=== PATIENT | male | born 1960 | race Caucasian/White ===

== ENCOUNTER 2018-07-19 10:46 | Emergency (ER) | payer BC ==
[2018-07-19] MEDS ORDERED: HYDROmorphone 2 MG/ML SDV IM ONE (11:28)
--- NOTE | 2018-07-19 11:29 | EDM.PDOC ---
ED HPI GENERAL MEDICAL PROBLEM - General Chief Complaint: General Stated Complaint: ABD PAIN, Time Seen by Provider: 07/19/18 10:46 Source of Information: Reports: Patient, Family History Limitations: Reports: No Limitations - History of Present Illness INITIAL COMMENTS - FREE TEXT/NARRATIVE: 58 y.o.w.m came to the ED with his family due to RUQ abd. pain. Pt was seen in the UC and was diagnosed with a liver and spinal lesion, suggestive of MM. Pt was given oxycodone for pain. Pt has an appointment with GI on 07/25/2018 for Bx and endoscopies. No trauma, No N/V/D or any other acute med issues. BP 125/99 RR 16 Pulse ox 96% on RA Temp 36.4 Pulse 104 Onset Date: 07/14/18 Onset Time: 08:00 Duration: Day(s):, Intermittent Location: Reports: Abdomen, Back Quality: Reports: Ache, Burning, Dull, Pressure Severity: Moderate Improves with: Reports: Rest Worsens with: Reports: Movement Context: Reports: Other Treatments [employer] SALES REPRESENTATIVE: Reports: Other (see below) (oxycodone with thylenol 8 hours [employer] REPRESENTATIVE) Right upper quadrant Pain Score (Numeric/FACES): 10 - Related Data Allergies Allergy/AdvReac Type Severity Reaction Status Date / Time No Known Allergies Allergy Verified 07/16/18 12:49 Home Meds: Home Meds Amitriptyline [Elavil] 25 mg PO DAILY 07/19/18 [History] Citalopram [Citalopram HBr] 40 mg PO DAILY 07/19/18 [History] Lisinopril 40 mg PO DAILY 07/19/18 [History] Simvastatin 10 mg PO DAILY 07/19/18 [History] oxyCODONE 5 mg PO Q6HR PRN #16 tab 07/19/18 [Rx] Past Medical History HEENT History: Reports: Impaired Vision Cardiovascular History: Reports: High Cholesterol, Hypertension Musculoskeletal History: Reports: Arthritis Psychiatric History: Reports: Depression Endocrine/Metabolic History: Reports: Obesity/BMI 30+ - Past Surgical History HEENT Surgical History: Reports: Other (See Below) Other HEENT Surgeries/Procedures: Septum surgery GI Surgical History: Reports: Colonoscopy, Other (See Below) Other GI Surgeries/Procedures: Liver lesion Musculoskeletal Surgical History: Reports: Hip Replacement Social & Family History - Tobacco Use Smoking Status *Q: Never Smoker Second Hand Smoke Exposure: No - Caffeine Use Caffeine Use: Reports: Soda - Recreational Drug Use Recreational Drug Use: No ED ROS GENERAL - Review of Systems Review Of Systems: See Below Constitutional: Reports: No Symptoms HEENT: Reports: No Symptoms Respiratory: Reports: No Symptoms Cardiovascular: Reports: No Symptoms Endocrine: Reports: No Symptoms GI/Abdominal: Reports: Abdominal Pain : Reports: No Symptoms Musculoskeletal: Reports: No Symptoms Skin: Reports: No Symptoms Neurological: Reports: No Symptoms Psychiatric: Reports: No Symptoms Hematologic/Lymphatic: Reports: No Symptoms Immunologic: Reports: No Symptoms ED EXAM, GENERAL - Physical Exam Exam: See Below Exam Limited By: No Limitations General Appearance: Alert, WD/WN, Mild Distress Eye Exam: Bilateral Eye: Normal Inspection Ears: Normal External Exam Ear Exam: Bilateral Ear: Auricle Normal Nose: Normal Inspection Throat/Mouth: Normal Lips, Normal Voice, No Airway Compromise Head: Atraumatic, Normocephalic Neck: Normal Inspection, Supple, Non-Tender, Full Range of Motion Respiratory/Chest: No Respiratory Distress, Lungs Clear, Normal Breath Sounds Cardiovascular: Normal Peripheral Pulses, Regular Rate, Rhythm, No Edema, No Gallop Peripheral Pulses: 2+: Brachial (R) GI/Abdominal: Tender (RUQ ), Hepatomegaly (Male) Exam: No Hernia Rectal (Males) Exam: Deferred Back Exam: Normal Inspection, Full Range of Motion Extremities: Normal Inspection, Normal Range of Motion, Non-Tender, Normal Capillary Refill Neurological: Alert, Oriented, CN II-XII Intact, Normal Cognition, Normal Gait Psychiatric: Normal Affect, Normal Mood Skin Exam: Warm, Dry, Intact, Normal Color, No Rash Lymphatic: No Adenopathy Course - Vital Signs Text/Narrative:: 58 y.o.w.m came to the ED with his family due to RUQ abd. pain. Pt was seen in the UC and was diagnosed with a liver and spinal lesion, suggestive of MM. Pt was given oxycodone for pain. Pt has an appointment with GI on 07/25/2018 for Bx and endoscopies. No trauma, No N/V/D or any other acute med issues. BP 125/99 RR 16 Pulse ox 96% on RA Temp 36.4 Pulse 104 PE: WNWD w m with hepatomegaly Labs: and imaging taken 07/15/2018 Impression: Hepatomegaly with RUQ abd. pain; liver and bone lesions as per CT abd/pelvis taken 07/15/2018 Tx: Dilaudid, Pt refused US of abd. limited Reexam: Improved Plan: D/C with instructions 11.31 consultation Gretchen Moise: 07/25/2018 GI for endoscopy. Last Recorded V/S: Last Vital Signs Temp 36.8 C 07/19/18 11:55 Pulse 88 07/19/18 11:55 Resp 16 07/19/18 11:55 BP 141/91 H 07/19/18 11:55 Pulse Ox 97 07/19/18 11:55 - Orders/Labs/Meds Meds: Medications Discontinued Medications Generic Name Dose Route Start Last Admin Trade Name Freq PRN Reason Stop Dose Admin Hydromorphone HCl 1 mg 07/19/18 11:28 07/19/18 11:36 Dilaudid IM 07/19/18 11:29 1 mg ONETIME ONE Administration Departure - Departure Time of Disposition: 12:00 Disposition: Home, Self-Care 01 Condition: Good Clinical Impression: Abdominal pain - Discharge Information Prescriptions: oxyCODONE 5 mg PO Q6HR PRN #16 tab PRN Reason: for severe pain Instructions: Hepatomegaly, [id number] Referrals: Stalin Mondragon MD [Primary Care Provider] - Forms: ED Department Discharge Additional Instructions: Please take Oxycodone for severe pain please f/u with GI as scheduled on 2018, Please come back if your symptoms get worse acutely
== END 2018-07-19 11:58 | disposition home or self-care (01) ==
LOC: FB.ED 10:46
DX: R16.0 Hepatomegaly, not elsewhere classified (principal); R94.8 Abnormal results of function studies of other organs and systems; E78.00 Pure hypercholesterolemia, unspecified; I10 Essential (primary) hypertension; E66.9 Obesity, unspecified; Z79.899 Other long term (current) drug therapy; Z68.31 Body mass index [BMI] 31.0-31.9, adult
CPT/HCPCS: 96372; 99283; J1170

== ENCOUNTER 2020-08-24 10:03 | Inpatient (IN) | payer BC ==
--- NOTE | 2020-08-24 10:37 | EDM.PDOC ---
ED HPI GENERAL MEDICAL PROBLEM - General Chief Complaint: General Stated Complaint: FALL Time Seen by Provider: 08/24/20 10:03 - History of Present Illness INITIAL COMMENTS - FREE TEXT/NARRATIVE: 60-year-old gentleman with a past medical history significant for bile duct cancer was brought to the emergency department from his home by EMS after suffering a fall in the bathroom. Patient states that he was simply weak and his leg gave out and he fell. He did not hit his head or suffer any other injuries. He has no pain or complaints. However, he has had several falls recently. This is about his fifth fall in 1 week. Review of past medical records shows that he has been to his primary care physician twice this past week and received IV fluids. His last cancer treatment was in May or June of this year and he is trying to regain some strength prior to his next cancer treatment. 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 He also has a history of left lower extremity DVT currently treated with Eliquis 5 mg daily. He did not take Eliquis this morning and is not sure if he has been taking his Eliquis daily as prescribed but thinks that he has. He does not have shortness of breath or chest pain at this time. - Related Data Allergies Allergy/AdvReac Type Severity Reaction Status Date / Time No Known Allergies Allergy Verified 07/16/18 12:49 Home Meds: Home Meds Amitriptyline [Elavil] 25 mg PO DAILY 07/19/18 [History] Citalopram [Citalopram HBr] 40 mg PO DAILY 07/19/18 [History] Lisinopril 40 mg PO DAILY 07/19/18 [History] Simvastatin 10 mg PO DAILY 07/19/18 [History] oxyCODONE 5 mg PO Q6HR PRN #16 tab 07/19/18 [Rx] Past Medical History HEENT History: Reports: Impaired Vision Cardiovascular History: Reports: High Cholesterol, Hypertension Musculoskeletal History: Reports: Arthritis Psychiatric History: Reports: Depression Endocrine/Metabolic History: Reports: Obesity/BMI 30+ - Past Surgical History HEENT Surgical History: Reports: Other (See Below) Other HEENT Surgeries/Procedures: Septum surgery GI Surgical History: Reports: Colonoscopy, Other (See Below) Other GI Surgeries/Procedures: Liver lesion Musculoskeletal Surgical History: Reports: Hip Replacement Social & Family History - Caffeine Use Caffeine Use: Reports: Soda ED ROS GENERAL - Review of Systems Review Of Systems: See Below Constitutional: Reports: Weakness HEENT: Reports: No Symptoms Respiratory: Reports: No Symptoms Cardiovascular: Reports: No Symptoms Endocrine: Reports: No Symptoms GI/Abdominal: Reports: No Symptoms : Reports: No Symptoms Musculoskeletal: Reports: No Symptoms Skin: Reports: No Symptoms Neurological: Reports: Difficulty Walking, Weakness, Gait Disturbance Psychiatric: Reports: No Symptoms Hematologic/Lymphatic: Reports: No Symptoms Immunologic: Reports: No Symptoms ED EXAM, NEURO - Physical Exam Exam: See Below Exam Limited By: No Limitations General Appearance: Alert, WD/WN, No Apparent Distress, Anxious Eye Exam: Bilateral Eye: EOMI Throat/Mouth: Normal Inspection Head Exam: Other (Patient has ecchymosis with swelling on the superior aspect of the right parietal area (this is an injury from a previous fall last week and is known)) Neck: Normal Inspection Respiratory/Chest: No Respiratory Distress, Lungs Clear Cardiovascular: Normal Peripheral Pulses, Regular Rate, Rhythm GI/Abdominal: Normal Bowel Sounds, Non-Tender Neurological: Alert, Normal Mood/Affect, CN II-XII Intact, Ataxia Back Exam: Other (Large bruise in approximately the T12-L1 area (this is also from a previous fall and is known with no current symptoms)). No: CVA Tenderness (L), Decreased Range of Motion Extremities: Pedal Edema, Other (Multiple bruises from previous falls). No: Arm Pain, James's Sign, Leg Pain Psychiatric: Normal Affect, Normal Mood, Anxious Skin Exam: Warm, Dry, Intact Course - Orders/Labs/Meds Orders: Active Orders 24 hr Category Date Time Status Patient Status Manage Transfer [TRANSFER] Routine ADT 08/24/20 11:29 Active Magnesium Sulfate/Water [Magnesium Sulfate in Water 4 Med 08/24/20 11:10 Active GM/50 ML] 4 gm Premix Bag 1 bag IV ONETIME Medication Orders Magnesium Sulfate 4 gm/ Premix 50 mls @ 12.5 mls/hr IV ONETIME ONE Stop: 08/24/20 15:09 Last Admin: 08/24/20 11:29 Dose: 12.5 mls/hr Documented by: EDUARD Labs: Laboratory Tests 08/24/20 08/24/2008/24/21 Range/Units 10:35 10:35 10:35 WBC 4.2 (3.2-10.1) x10-3/uL RBC 2.32 L (3.90-5.90) x10(6)uL Hgb 8.6 L (12.9-17.7) g/dL Hct 26.1 L (38.3-50.1) % MCV 112.6 H (80.8-98.7) fL MCH 37.0 H (27.0-33.3) pg MCHC 32.9 (28.7-35.3) g/dL RDW 18.2 H (12.4-15.0) % Plt Count 89 L (117-477) x10(3)uL MPV 7.1 (6.7-11.0) fL Neut % (Auto) 73.6 H (40.3-71.8) % Lymph % (Auto) 15.2 L (15.8-45.3) % [place] % (Auto) 9.7 (5.5-15.2) % Eos % (Auto) 1.1 (0.1-6.8) % Baso % (Auto) 0.4 (0.3-3.8) % Neut # (Auto) 3.1 (1.7-6.9) x10-3/uL Lymph # (Auto) 0.6 (0.5-4.5) x10-3/uL [place] # (Auto) 0.4 (0.0-1.2) x10-3/uL Eos # (Auto) 0.0 (0.0-0.6) x10-3/uL Baso # (Auto) 0.0 (0.0-0.3) x10-3/uL Sodium 140 (135-145) mmol/L Potassium 3.4 L (3.5-5.3) mmol/L Chloride 101 (100-110) mmol/L Carbon Dioxide 28 (21-32) mmol/L BUN 9 (7-18) mg/dL Creatinine 0.7 (0.70-1.30) mg/dL Est Cr Clr Drug Dosing TNP Estimated GFR (MDRD) > 60 (>60) BUN/Creatinine Ratio 12.9 (9-20) Glucose 93 (80-116) mg/dL Calcium 8.8 (8.6-10.2) mg/dL Magnesium 0.8 L* (1.8-2.5) mg/dL Total Bilirubin 1.0 (0.1-1.3) mg/dL AST 65 H D (5-25) IU/L ALT 36 D (12-36) U/L Alkaline Phosphatase 125 H (56-112) IU/L Total Protein 5.1 L (6.0-8.0) g/dL Albumin 2.3 L (3.2-4.6) g/dL Globulin 2.8 g/dL Albumin/Globulin Ratio 0.8 Meds: Medications Generic Name Dose Route Start Last Admin Trade Name Freq PRN Reason Stop Dose Admin Magnesium Sulfate 4 gm/ Premix 50 mls @ 12.5 mls/hr 08/24/20 11:10 08/24/20 11:29 IV 08/24/20 15:09 12.5 mls/hr ONETIME ONE Administration Discontinued Medications Generic Name Dose Route Start Last Admin Trade Name Freq PRN Reason Stop Dose Admin Potassium Chloride 40 meq 08/24/20 11:11 08/24/20 11:29 Potassium Chloride 20 Meq Tab.Er PO 08/24/20 11:12 40 meq ONETIME ONE Administration Departure - Departure Time of Disposition: 11:30 Disposition: Admitted As Inpatient 65 Condition: Fair Clinical Impression: Weakness - Discharge Information *PRESCRIPTION DRUG MONITORING PROGRAM REVIEWED*: Not Applicable *COPY OF PRESCRIPTION DRUG MONITORING REPORT IN PATIENT ANU: Not Applicable Forms: ED Department Discharge - My Orders Last 24 Hours: My Active Orders 08/24/20 11:10 Magnesium Sulfate/Water [Magnesium Sulfate in Water 4 GM/50 ML] 4 gm Premix Bag 1 bag IV ONETIME 08/24/20 11:29 Patient Status Manage Transfer [TRANSFER] Routine - Assessment/Plan Last 24 Hours: My Active Orders 08/24/20 11:10 Magnesium Sulfate/Water [Magnesium Sulfate in Water 4 GM/50 ML] 4 gm Premix Bag 1 bag IV ONETIME 08/24/20 11:29 Patient Status Manage Transfer [TRANSFER] Routine
[2020-08-24] MEDS ORDERED: Magnesium Sulfate/Water 4 GM in Premix Bag 1 BAG IV ONE (11:10)
[2020-08-24] MEDS ORDERED: Potassium Chloride 20 MEQ Tab.ER PO ONE (11:11)
--- NOTE | 2020-08-24 12:46 | PCM.HP.2 ---
H&P History of Present Illness - General Date of Service: 08/24/20 Admit Problem/Dx: Admission Diagnosis/Problem Admission Diagnosis/Problem Weakness Source of Information: Patient, EMS Notes Reviewed, Family - History of Present Illness Initial Comments - Free Text/Narative: Ari presents to [facility] today for fall at home, he has had more generalized weakness over the past few weeks. He was seen in clinic twice this week also for falls, bruising on his back, arms are from previous falls. No fractures or loss of consciousness with falls. No pain. He denies any diarrhea, black or bloody stools, dark red urine but family stated urine this week at clinic was negative for blood. He has poor appetite, family also confirms. She noted that he has been more confused lately and she noticed in the past few weeks that his right pupil looks funny, doesn't seem to react like the other one, just staring off. He denies any change of his vision. 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 Family states he has never had imaging done of his head in regards to cancer or since he has been falling. 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 He was last hospitalized in [place] with cellulitis beginning of July 2020, his Hgb was 11 at that time, platelets were 229. In clinic his potassium was low this week, no record of magnesium level per his [facility] chart, has been on potassium replacement for this. He got 3 bags of IV fluids total between the two clinic visits this week. Denies any slurred speech or limb weakness. No history of stroke. - Related Data Allergies/Adverse Reactions: Allergies Allergy/AdvReac Type Severity Reaction Status Date / Time No Known Allergies Allergy Verified 07/16/18 12:49 Home Medications: Home Meds Amitriptyline [Elavil] 25 mg PO DAILY 07/19/18 [History] Citalopram [Citalopram HBr] 40 mg PO DAILY 07/19/18 [History] Lisinopril 40 mg PO DAILY 07/19/18 [History] Simvastatin 10 mg PO DAILY 07/19/18 [History] oxyCODONE 5 mg PO Q6HR PRN #16 tab 07/19/18 [Rx] Past Medical History HEENT History: Reports: Impaired Vision Cardiovascular History: Reports: High Cholesterol, Hypertension Musculoskeletal History: Reports: Arthritis Psychiatric History: Reports: Depression Endocrine/Metabolic History: Reports: Obesity/BMI 30+ - Past Surgical History HEENT Surgical History: Reports: Other (See Below) Other HEENT Surgeries/Procedures: Septum surgery GI Surgical History: Reports: Colonoscopy, Other (See Below) Other GI Surgeries/Procedures: Liver lesion Musculoskeletal Surgical History: Reports: Hip Replacement Social & Family History - Caffeine Use Caffeine Use: Reports: Soda H&P Review of Systems - Review of Systems: Review Of Systems: Comprehensive ROS is negative, except as noted in HPI. Exam - Exam Exam: See Below - Exam General: Alert, Oriented, Cooperative HEENT: Conjunctiva Clear, EOMI, Hearing Intact, Mucosa Moist & [place], Posterior Pharynx Clear. No: Pupils Equal (Right: 2-3 mm, non-reactive to sluggish; Left 4 mm, reactive), Pupils Reactive Neck: Trachea Midline. No: Lymphadenopathy Lungs: Clear to Auscultation, Normal Respiratory Effort Cardiovascular: Tachycardia. No: Systolic Murmur GI/Abdominal Exam: Normal Bowel Sounds, Soft, Non-Tender, No Distention (Male) Exam: Deferred Rectal (Males) Exam: Deferred Back Exam: Other (scar across lower thoracic/upper lumbar back, ecchymosis on right lumbar paraspinal area). No: CVA Tenderness (R), CVA Tenderness (L), Paraspinal Tenderness Extremities: No Pedal Edema Peripheral Pulses: 2+: Radial (L), Radial (R) Skin: Ecchymosis Neurological: Normal Speech, Normal Tone, Sensation Intact, Babinski Absent, Reflexes Unequal. No: Cranial Nerves Intact (CN III on right: sluggish to non- reactive; reactive on left; CN II, IV-XII intact, bilateral), Strength Equal Bilateral (Strength 4+/5 BUE, 3+/5 BLE, dorsiflexion 5/5 bilateral, blue prints trimmer 4/5 bilateral) Neuro Extensive - Mental Status: Memory Loss-Recent Events (some history obtained from family as he did not remember), Nl Response to Commands Neuro Extensive - Motor, Sensory, Reflexes: No: Hemeplagia (R), Hemeplagia (L), Tremor DTR: 0: Patella (L), Patella (R), 1+: Achilles (L), Achilles (R), 2+: Bicep (L), Bicep (R), Tricep (L), Tricep (R) - Patient Data Lab Results Last 24 hrs: Laboratory Results - last 24 hr 08/24/20 08/24/20 08/24/20 Range/Units 10:35 10:35 10:35 WBC 4.2 (3.2-10.1) x10-3/uL RBC 2.32 L (3.90-5.90) x10(6)uL Hgb 8.6 L (12.9-17.7) g/dL Hct 26.1 L (38.3-50.1) % MCV 112.6 H (80.8-98.7) fL MCH 37.0 H (27.0-33.3) pg MCHC 32.9 (28.7-35.3) g/dL RDW 18.2 H (12.4-15.0) % Plt Count 89 L (117-477) x10(3)uL MPV 7.1 (6.7-11.0) fL Neut % (Auto) 73.6 H (40.3-71.8) % Lymph % (Auto) 15.2 L (15.8-45.3) % [place] % (Auto) 9.7 (5.5-15.2) % Eos % (Auto) 1.1 (0.1-6.8) % Baso % (Auto) 0.4 (0.3-3.8) % Neut # (Auto) 3.1 (1.7-6.9) x10-3/uL Lymph # (Auto) 0.6 (0.5-4.5) x10-3/uL [place] # (Auto) 0.4 (0.0-1.2) x10-3/uL Eos # (Auto) 0.0 (0.0-0.6) x10-3/uL Baso # (Auto) 0.0 (0.0-0.3) x10-3/uL Sodium 140 (135-145) mmol/L Potassium 3.4 L (3.5-5.3) mmol/L Chloride 101 (100-110) mmol/L Carbon Dioxide 28 (21-32) mmol/L BUN 9 (7-18) mg/dL Creatinine 0.7 (0.70-1.30) mg/dL Est Cr Clr Drug Dosing TNP Estimated GFR (MDRD) > 60 (>60) BUN/Creatinine Ratio 12.9 (9-20) Glucose 93 (80-116) mg/dL Calcium 8.8 (8.6-10.2) mg/dL Magnesium 0.8 L* (1.8-2.5) mg/dL Total Bilirubin 1.0 (0.1-1.3) mg/dL AST 65 H D (5-25) IU/L ALT 36 D (12-36) U/L Alkaline Phosphatase 125 H (56-112) IU/L Total Protein 5.1 L (6.0-8.0) g/dL Albumin 2.3 L (3.2-4.6) g/dL Globulin 2.8 g/dL Albumin/Globulin Ratio 0.8 Result Diagrams: 08/24/20 10:35 08/24/20 10:35 *Q Meaningful Use (ADM) - VTE *Q VTE Mechanical Contraindications *Q: At Risk for Falls VTE Pharmacological Contraindications *Q: Patient has Severe Anemia - VTE Risk Assess *Q Each Risk Factor Represents 1 Point: None Total Score 1 Point Risk Factors: 0 Each Risk Factor Represents 2 Points: Malignancy (present or previous) Total Score 2 Point Risk Factors: 2 Each Risk Factor Represents 3 Points: History of DVT/PE Total Score 3 Point Risk Factors: 3 Each Risk Factor Represents 5 Points: None Total Score 5 Point Risk Factors: 0 Venous Thromboembolism Risk Factor Score *Q: 5 - Problem List (1) Hypomagnesemia SNOMED Code(s): 806429508 ICD Code: E83.42 - HYPOMAGNESEMIA Status: Acute Current Visit: Yes (2) Hypokalemia SNOMED Code(s): 71220537 ICD Code: E87.6 - HYPOKALEMIA Status: Acute Current Visit: Yes (3) Weakness SNOMED Code(s): 19028356 ICD Code: R53.1 - WEAKNESS Status: Acute Current Visit: Yes (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(s): 293493231 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 Status: Acute Current Visit: Yes (5) Hyporeflexia SNOMED Code(s): 28686698 ICD Code: R29.2 - ABNORMAL REFLEX Status: Acute Current Visit: Yes (6) Recurrent falls SNOMED Code(s): 194381405 ICD Code: R29.6 - REPEATED FALLS Status: Acute Current Visit: Yes (7) Thrombocytopenia SNOMED Code(s): 416145444 ICD Code: D69.6 - THROMBOCYTOPENIA, UNSPECIFIED Status: Acute Current Visit: Yes (8) Anemia SNOMED Code(s): 085455750 ICD Code: D64.9 - ANEMIA, UNSPECIFIED Status: Acute Current Visit: Yes (9) Bile duct cancer SNOMED Code(s): 427633367 ICD Code: C24.0 - MALIGNANT NEOPLASM OF EXTRAHEPATIC BILE DUCT Status: Chronic Current Visit: Yes (10) Metastasis SNOMED Code(s): 558672191 ICD Code: C79.9 - SECONDARY MALIGNANT NEOPLASM OF UNSPECIFIED SITE Status: Chronic Current Visit: Yes Problem Details: ribs/back, liver Qualifiers: Area of secondary neoplastic involvement: bone Qualified Code(s): C79.51 - Secondary malignant neoplasm of bone Problem List Initiated/Reviewed/Updated: Yes Orders Last 24hrs: Active Orders 24 hr Category Date Time Status Patient Status [ADT] Routine ADT 08/24/20 11:38 Active Oxygen Therapy [RC] PRN Care 08/24/20 11:38 Active Up With Assistance [RC] ASDIRECTED Care 08/24/20 11:38 Active Up to Chair [RC] ASDIRECTED Care 08/24/20 11:38 Active VTE/DVT Education [RC] Per Unit Routine Care 08/24/20 11:38 Active Vital Signs [RC] Q4H Care 08/24/20 11:38 Active OT Evaluation and Treatment [CONS] Routine Cons 08/24/20 11:38 Active PT Evaluation and Treatment [CONS] Routine Cons 08/24/20 11:38 Active Regular Diet [DIET] Diet 08/24/20 Lunch Active Head wo Cont [CT] Stat Exams 08/24/20 12:06 Ordered BASIC METABOLIC PANEL,BMP [CHEM] Routine Lab 08/25/20 06:00 Ordered CBC WITH AUTO DIFF [HEME] Routine Lab 08/25/20 06:00 Ordered MAGNESIUM [CHEM] Routine Lab 08/25/20 06:00 Ordered Magnesium Sulfate/Water [Magnesium Sulfate in Water 4 Med 08/24/20 11:10 Active GM/50 ML] 4 gm Premix Bag 1 bag IV ONETIME Sodium Chloride 0.9% [Saline Flush] Med 08/24/20 11:38 Active 10 ml FLUSH ASDIRECTED PRN Antiembolic Hose [OM.PC] Per Unit Routine Ot 08/24/20 11:40 Ordered Saline Lock Insert [OM.PC] Routine Ot 08/24/20 11:38 Ordered VTE Mechanical Contraindications [AST] Per Unit Routine Ot 08/24/20 11:38 Ordered VTE Pharmacological Contraindications [AST] Per Unit Ot 08/24/20 11:38 Ordered Routine Resuscitation Status Routine Resus Stat 08/24/20 11:38 Ordered Medication Orders Magnesium Sulfate 4 gm/ Premix 50 mls @ 12.5 mls/hr IV ONETIME ONE Stop: 08/24/20 15:09 Last Admin: 08/24/20 11:29 Dose: 12.5 mls/hr Documented by: EDUARD Sodium Chloride (Sodium Chloride 0.9% 10 Ml Syringe) 10 ml FLUSH ASDIRECTED PRN PRN Reason: Keep Vein Open Assessment/Plan Comment:: 1. Admit for hypomagnesemia, hypokalemia, generalized weakness, recurrent falls, hyporeflexia/abnormal right pupil, history of bile duct cancer. 2. recurrent falls/hyporeflexia/abnormal pupil: will get CT head without contrast to rule out stroke vs hemorrhage, on Eliquis and thrombocytopenic worse since last admission at 229. No obvious source of blood loss. No history of blood transfusions. Not taking iron. 3. Falls/generalized weakness: PT/OT evaluate & treat on Tuesday. 4. Hypomagnesemia/hypokalemia: Magnesium 4 gram IV given in ER, and KCL 40 mEQ in ER; repeat BMP & magnesium in AM. 5. Anemia/thrombocytopenia: repeat CBC tomorrow. FOB & UA ordered. 6. Bile duct cancer: last chemo was June 2020, due to see oncology on Tuesday with CT chest/abdomen/pelvis. Has been off chemo due to weakness. 7. DIET: Regular. 8. Activity: up to chair and with assistance. 9. DVT prophylaxis: CT head to rule out hemorrhage, if negative will resume home Eliquis 5 mg bid. TEDs BLE. 10. CODE STATUS: DNR/DNI. 11. Discharge: anticipate discharge 48-96 hr depending on response to PT/OT and electrolyte replacement. - Mortality Measure Prognosis:: Poor
[2020-08-24] MEDS ORDERED: Acetaminophen 650 MG Tab.ER PO PRN (15:27)
[2020-08-24] MEDS: Sodium Chloride 0.9% 1,000 ML IV SCH (15:28)
[2020-08-24] MEDS: Acetaminophen/Diphenhydramine 500-25 MG Tab PO SCH (20:06)
[2020-08-24] MEDS ORDERED: Loperamide 2 MG Cap PO ONE (20:27)
[2020-08-25] MEDS: Sodium Chloride 0.9% 1,000 ML IV SCH (01:11)
[2020-08-25] MEDS: Pantoprazole 40 MG Tab.CR PO SCH (06:48)
[2020-08-25] MEDS: Citalopram 20 MG Tab PO SCH (09:02)
[2020-08-25] MEDS: Potassium Chloride 20 MEQ Tab.ER PO SCH (09:02)
[2020-08-25] MEDS ORDERED: Melatonin 3 MG Tab PO PRN (09:13)
--- NOTE | 2020-08-25 10:29 | PCM.PN ---
- General Info Date of Service: 08/25/20 Subjective Update: He slept a little bit better yesterday, not been sleeping much lately. He had bad nightmares on Ambien so no longer taking that at home. No nausea/vomiting, diarrhea. His appetite is still poor, states he drinks a lot of protein shakes at home. He feels he has maybe a couple months left to live, he has not really rallied since going off chemo in June, lost another 14 lbs since 07/30, had lost 14 lbs from May to that July appt with oncology, so 28 lbs total since . He seems more alert today but still confused as he told me he thought he could take care of himself at home then said exact opposite to spiritual services. Family has noted more confusion over the past few months. - Patient Data Vitals - Most Recent: Last Vital Signs Temp 98.1 F 08/25/20 04:00 Pulse 109 H 08/25/20 04:00 Resp 20 08/25/20 04:00 BP 115/83 08/25/20 04:00 Pulse Ox 96 08/25/20 04:00 Weight - Most Recent: 189 lb 8 oz I&O - Last 24 Hours: Intake & Output 08/24/20 08/25/20 08/25/20 22:59 06:59 14:59 Intake Total 410 1080 Balance 410 1080 Lab Results Last 24 Hours: Laboratory Results - last 24 hr 08/24/20 08/24/20 08/24/20 Range/Units 10:35 10:35 10:35 WBC 4.2 (3.2-10.1) x10-3/uL RBC 2.32 L (3.90-5.90) x10(6)uL Hgb 8.6 L (12.9-17.7) g/dL Hct 26.1 L (38.3-50.1) % MCV 112.6 H (80.8-98.7) fL MCH 37.0 H (27.0-33.3) pg MCHC 32.9 (28.7-35.3) g/dL RDW 18.2 H (12.4-15.0) % Plt Count 89 L (117-477) x10(3)uL MPV 7.1 (6.7-11.0) fL Neut % (Auto) 73.6 H (40.3-71.8) % Lymph % (Auto) 15.2 L (15.8-45.3) % [place] % (Auto) 9.7 (5.5-15.2) % Eos % (Auto) 1.1 (0.1-6.8) % Baso % (Auto) 0.4 (0.3-3.8) % Neut # (Auto) 3.1 (1.7-6.9) x10-3/uL Lymph # (Auto) 0.6 (0.5-4.5) x10-3/uL [place] # (Auto) 0.4 (0.0-1.2) x10-3/uL Eos # (Auto) 0.0 (0.0-0.6) x10-3/uL Baso # (Auto) 0.0 (0.0-0.3) x10-3/uL Sodium 140 (135-145) mmol/L Potassium 3.4 L (3.5-5.3) mmol/L Chloride 101 (100-110) mmol/L Carbon Dioxide 28 (21-32) mmol/L BUN 9 (7-18) mg/dL Creatinine 0.7 (0.70-1.30) mg/dL Est Cr Clr Drug Dosing TNP Estimated GFR (MDRD) > 60 (>60) BUN/Creatinine Ratio 12.9 (9-20) Glucose 93 (80-116) mg/dL Calcium 8.8 (8.6-10.2) mg/dL Magnesium 0.8 L* (1.8-2.5) mg/dL Total Bilirubin 1.0 (0.1-1.3) mg/dL AST 65 H D (5-25) IU/L ALT 36 D (12-36) U/L Alkaline Phosphatase 125 H (56-112) IU/L Total Protein 5.1 L (6.0-8.0) g/dL Albumin 2.3 L (3.2-4.6) g/dL Globulin 2.8 g/dL Albumin/Globulin Ratio 0.8 Urine Color (YELLOW) Urine Appearance (CLEAR) Urine pH (5.0-6.5) Ur Specific [place] (1.010-1.025) Urine Protein (NEGATIVE) mg/dL Urine Glucose (UA) (NORMAL) mg/dL Urine Ketones (NEGATIVE) mg/dL Urine Occult Blood (NEGATIVE) Urine Nitrite (NEGATIVE) Urine Bilirubin (NEGATIVE) Urine Urobilinogen (NEGATIVE) mg/dL Ur Leukocyte Esterase (NEGATIVE) Urine RBC (0-5) Urine WBC (0-5) Ur Squamous Epith Cells (NS,R,O) Urine Bacteria (NS) Urine Mucus (NS) 08/24/20 08/25/20 08/25/20 Range/Units 13:59 06:35 06:35 WBC 4.7 (3.2-10.1) x10-3/uL RBC 2.22 L (3.90-5.90) x10(6)uL Hgb 8.3 L (12.9-17.7) g/dL Hct 25.2 L (38.3-50.1) % MCV 113.9 H (80.8-98.7) fL MCH 37.4 H (27.0-33.3) pg MCHC 32.9 (28.7-35.3) g/dL RDW 17.9 H (12.4-15.0) % Plt Count 89 L (117-477) x10(3)uL MPV 7.3 (6.7-11.0) fL Neut % (Auto) 74.6 H (40.3-71.8) % Lymph % (Auto) 14.7 L (15.8-45.3) % [place] % (Auto) 8.8 (5.5-15.2) % Eos % (Auto) 1.7 (0.1-6.8) % Baso % (Auto) 0.2 L (0.3-3.8) % Neut # (Auto) 3.5 (1.7-6.9) x10-3/uL Lymph # (Auto) 0.7 (0.5-4.5) x10-3/uL [place] # (Auto) 0.4 (0.0-1.2) x10-3/uL Eos # (Auto) 0.1 (0.0-0.6) x10-3/uL Baso # (Auto) 0.0 (0.0-0.3) x10-3/uL Sodium 141 (135-145) mmol/L Potassium 3.6 (3.5-5.3) mmol/L Chloride 105 (100-110) mmol/L Carbon Dioxide 27 (21-32) mmol/L BUN 8 (7-18) mg/dL Creatinine 0.7 (0.70-1.30) mg/dL Est Cr Clr Drug Dosing 121.63 Estimated GFR (MDRD) > 60 (>60) BUN/Creatinine Ratio 11.4 (9-20) Glucose 82 (80-116) mg/dL Calcium 7.5 L (8.6-10.2) mg/dL Magnesium 1.5 L (1.8-2.5) mg/dL Total Bilirubin (0.1-1.3) mg/dL AST (5-25) IU/L ALT (12-36) U/L Alkaline Phosphatase (56-112) IU/L Total Protein (6.0-8.0) g/dL Albumin (3.2-4.6) g/dL Globulin g/dL Albumin/Globulin Ratio Urine Color Yellow (YELLOW) Urine Appearance Clear (CLEAR) Urine pH 7.0 H (5.0-6.5) Ur Specific [place] 1.005 L (1.010-1.025) Urine Protein Negative (NEGATIVE) mg/dL Urine Glucose (UA) Normal (NORMAL) mg/dL Urine Ketones 15 H (NEGATIVE) mg/dL Urine Occult Blood Moderate H (NEGATIVE) Urine Nitrite Negative (NEGATIVE) Urine Bilirubin Negative (NEGATIVE) Urine Urobilinogen Normal (NEGATIVE) mg/dL Ur Leukocyte Esterase Negative (NEGATIVE) Urine RBC 5-10 H (0-5) Urine WBC 0-5 (0-5) Ur Squamous Epith Cells Few H (NS,R,O) Urine Bacteria Few H (NS) Urine Mucus Moderate H (NS) Med Orders - Current: Current Medications Acetaminophen (Acetaminophen 650 Mg Tab.Er) 650 mg PO Q8H PRN PRN Reason: Pain Acetaminophen/Diphenhydramine HCl (Acetaminophen/Diphenhydramine 500-25 Mg Tab) 1 tab PO BEDTIME DENEEN Last Admin: 08/24/20 20:06 Dose: 1 tab Documented by: Amitriptyline HCl (Amitriptyline 25 Mg Tab) 75 mg PO BEDTIME DENEEN Apixaban (Apixaban 5 Mg Tab) 5 mg PO BID [facility] Calcium Carbonate/Glycine (Calcium Carbonate 500 Mg Tablet) 1,500 mg PO BIDMEALS [facility] Citalopram Hydrobromide (Citalopram 20 Mg Tab) 40 mg PO DAILY [facility] Last Admin: 08/25/20 09:02 Dose: 40 mg Documented by: Sodium Chloride (Normal Saline) 1,000 mls @ 100 mls/hr IV ASDIRECTED [facility] Stop: 08/26/20 00:44 Last Admin: 08/25/20 01:11 Dose: 100 mls/hr Documented by: Loperamide HCl (Loperamide 2 Mg Cap) 2 mg PO ASDIRECTED PRN PRN Reason: Diarrhea Loperamide HCl (Loperamide 2 Mg Cap) 2 mg PO ASDIRECTED PRN PRN Reason: DIARRHEA Melatonin (Melatonin 3 Mg Tab) 6 mg PO BEDTIME PRN PRN Reason: Insomnia Morphine Sulfate (Morphine 15 Mg Tab) 15 mg PO Q4H PRN PRN Reason: severe Pain Pantoprazole Sodium (Pantoprazole 40 Mg Tab.Cr) 40 mg PO ACBREAKFAST [facility] Last Admin: 08/25/20 06:48 Dose: 40 mg Documented by: Potassium Chloride (Potassium Chloride 20 Meq Tab.Er) 20 meq PO DAILY [facility] Last Admin: 08/25/20 09:02 Dose: 20 meq Documented by: Simvastatin (Simvastatin 10 Mg Tab) 10 mg PO BEDTIME [facility] Sodium Chloride (Sodium Chloride 0.9% 10 Ml Syringe) 10 ml FLUSH ASDIRECTED PRN PRN Reason: Keep Vein Open Discontinued Medications Acetaminophen (Acetaminophen 650 Mg Tab.Er) 650 mg PO Q4H PRN PRN Reason: Pain Magnesium Sulfate 4 gm/ Premix 50 mls @ 12.5 mls/hr IV ONETIME ONE Stop: 08/24/20 15:09 Last Admin: 08/24/20 11:29 Dose: 12.5 mls/hr Documented by: Loperamide HCl (Loperamide 2 Mg Cap) 4 mg PO ONETIME ONE Stop: 08/24/20 20:28 Last Admin: 08/24/20 20:57 Dose: 4 mg Documented by: Potassium Chloride (Potassium Chloride 20 Meq Tab.Er) 40 meq PO ONETIME ONE Stop: 08/24/20 11:12 Last Admin: 08/24/20 11:29 Dose: 40 meq Documented by: - Exam Central Line Total Time: 0Days 13Hours General: Alert, Oriented (person, some confusion), Cooperative, No Acute Distress Lungs: Clear to Auscultation, Normal Respiratory Effort Cardiovascular: Regular Rate, Regular Rhythm GI/Abdominal Exam: Normal Bowel Sounds, Soft, Non-Tender, No Distention Extremities: No Pedal Edema Peripheral Pulses: 2+: Radial (L), Radial (R) - Patient Data Lab Results Last 24 hrs: Laboratory Results - last 24 hr 08/24/20 08/24/20 08/24/20 Range/Units 10:35 10:35 10:35 WBC 4.2 (3.2-10.1) x10-3/uL RBC 2.32 L (3.90-5.90) x10(6)uL Hgb 8.6 L (12.9-17.7) g/dL Hct 26.1 L (38.3-50.1) % MCV 112.6 H (80.8-98.7) fL MCH 37.0 H (27.0-33.3) pg MCHC 32.9 (28.7-35.3) g/dL RDW 18.2 H (12.4-15.0) % Plt Count 89 L (117-477) x10(3)uL MPV 7.1 (6.7-11.0) fL Neut % (Auto) 73.6 H (40.3-71.8) % Lymph % (Auto) 15.2 L (15.8-45.3) % [place] % (Auto) 9.7 (5.5-15.2) % Eos % (Auto) 1.1 (0.1-6.8) % Baso % (Auto) 0.4 (0.3-3.8) % Neut # (Auto) 3.1 (1.7-6.9) x10-3/uL Lymph # (Auto) 0.6 (0.5-4.5) x10-3/uL [place] # (Auto) 0.4 (0.0-1.2) x10-3/uL Eos # (Auto) 0.0 (0.0-0.6) x10-3/uL Baso # (Auto) 0.0 (0.0-0.3) x10-3/uL Sodium 140 (135-145) mmol/L Potassium 3.4 L (3.5-5.3) mmol/L Chloride 101 (100-110) mmol/L Carbon Dioxide 28 (21-32) mmol/L BUN 9 (7-18) mg/dL Creatinine 0.7 (0.70-1.30) mg/dL Est Cr Clr Drug Dosing TNP Estimated GFR (MDRD) > 60 (>60) BUN/Creatinine Ratio 12.9 (9-20) Glucose 93 (80-116) mg/dL Calcium 8.8 (8.6-10.2) mg/dL Magnesium 0.8 L* (1.8-2.5) mg/dL Total Bilirubin 1.0 (0.1-1.3) mg/dL AST 65 H D (5-25) IU/L ALT 36 D (12-36) U/L Alkaline Phosphatase 125 H (56-112) IU/L Total Protein 5.1 L (6.0-8.0) g/dL Albumin 2.3 L (3.2-4.6) g/dL Globulin 2.8 g/dL Albumin/Globulin Ratio 0.8 Urine Color (YELLOW) Urine Appearance (CLEAR) Urine pH (5.0-6.5) Ur Specific [place] (1.010-1.025) Urine Protein (NEGATIVE) mg/dL Urine Glucose (UA) (NORMAL) mg/dL Urine Ketones (NEGATIVE) mg/dL Urine Occult Blood (NEGATIVE) Urine Nitrite (NEGATIVE) Urine Bilirubin (NEGATIVE) Urine Urobilinogen (NEGATIVE) mg/dL Ur Leukocyte Esterase (NEGATIVE) Urine RBC (0-5) Urine WBC (0-5) Ur Squamous Epith Cells (NS,R,O) Urine Bacteria (NS) Urine Mucus (NS) 08/24/20 08/25/20 08/25/20 Range/Units 13:59 06:35 06:35 WBC 4.7 (3.2-10.1) x10-3/uL RBC 2.22 L (3.90-5.90) x10(6)uL Hgb 8.3 L (12.9-17.7) g/dL Hct 25.2 L (38.3-50.1) % MCV 113.9 H (80.8-98.7) fL MCH 37.4 H (27.0-33.3) pg MCHC 32.9 (28.7-35.3) g/dL RDW 17.9 H (12.4-15.0) % Plt Count 89 L (117-477) x10(3)uL MPV 7.3 (6.7-11.0) fL Neut % (Auto) 74.6 H (40.3-71.8) % Lymph % (Auto) 14.7 L (15.8-45.3) % [place] % (Auto) 8.8 (5.5-15.2) % Eos % (Auto) 1.7 (0.1-6.8) % Baso % (Auto) 0.2 L (0.3-3.8) % Neut # (Auto) 3.5 (1.7-6.9) x10-3/uL Lymph # (Auto) 0.7 (0.5-4.5) x10-3/uL [place] # (Auto) 0.4 (0.0-1.2) x10-3/uL Eos # (Auto) 0.1 (0.0-0.6) x10-3/uL Baso # (Auto) 0.0 (0.0-0.3) x10-3/uL Sodium 141 (135-145) mmol/L Potassium 3.6 (3.5-5.3) mmol/L Chloride 105 (100-110) mmol/L Carbon Dioxide 27 (21-32) mmol/L BUN 8 (7-18) mg/dL Creatinine 0.7 (0.70-1.30) mg/dL Est Cr Clr Drug Dosing 121.63 Estimated GFR (MDRD) > 60 (>60) BUN/Creatinine Ratio 11.4 (9-20) Glucose 82 (80-116) mg/dL Calcium 7.5 L (8.6-10.2) mg/dL Magnesium 1.5 L (1.8-2.5) mg/dL Total Bilirubin (0.1-1.3) mg/dL AST (5-25) IU/L ALT (12-36) U/L Alkaline Phosphatase (56-112) IU/L Total Protein (6.0-8.0) g/dL Albumin (3.2-4.6) g/dL Globulin g/dL Albumin/Globulin Ratio Urine Color Yellow (YELLOW) Urine Appearance Clear (CLEAR) Urine pH 7.0 H (5.0-6.5) Ur Specific [place] 1.005 L (1.010-1.025) Urine Protein Negative (NEGATIVE) mg/dL Urine Glucose (UA) Normal (NORMAL) mg/dL Urine Ketones 15 H (NEGATIVE) mg/dL Urine Occult Blood Moderate H (NEGATIVE) Urine Nitrite Negative (NEGATIVE) Urine Bilirubin Negative (NEGATIVE) Urine Urobilinogen Normal (NEGATIVE) mg/dL Ur Leukocyte Esterase Negative (NEGATIVE) Urine RBC 5-10 H (0-5) Urine WBC 0-5 (0-5) Ur Squamous Epith Cells Few H (NS,R,O) Urine Bacteria Few H (NS) Urine Mucus Moderate H (NS) Result Diagrams: 08/25/20 06:35 08/25/20 06:35 Sepsis Event Note - Evaluation Sepsis Screening Result: No Definite Risk - Focused Exam Vital Signs: Vital Signs Temp Pulse Resp BP Pulse Ox 08/25/20 04:00 98.1 F 109 H 20 115/83 96 08/25/20 00:00 98.3 F 106 H 20 120/80 98 - Problem List & Annotations (1) Hypomagnesemia SNOMED Code(s): 564808561 Code(s): E83.42 - HYPOMAGNESEMIA Status: Acute Current Visit: Yes Annotation/Comment:: improved, 1.5 today. Continue oral supplementation. 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 Status: Acute Current Visit: Yes Annotation/Comment:: CT no acute changes (5) Hyporeflexia SNOMED Code(s): 15645372 Code(s): R29.2 - ABNORMAL REFLEX Status: Acute Current Visit: Yes (6) Recurrent falls SNOMED Code(s): 324519966 Code(s): R29.6 - REPEATED FALLS Status: Acute Current Visit: Yes (7) Thrombocytopenia SNOMED Code(s): 793690006 Code(s): D69.6 - THROMBOCYTOPENIA, UNSPECIFIED Status: Acute Current Visit: Yes Annotation/Comment:: stable (8) Anemia SNOMED Code(s): 201509063 Code(s): D64.9 - ANEMIA, UNSPECIFIED Status: Acute Current Visit: Yes Qualifiers: Other causes of anemia: nutritional, unspecified (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 Code(s): C24.0 - MALIGNANT NEOPLASM OF EXTRAHEPATIC BILE DUCT Status: Chronic Current Visit: Yes (10) Metastasis SNOMED Code(s): 281044674 Code(s): C79.9 - SECONDARY MALIGNANT NEOPLASM OF UNSPECIFIED SITE Status: Chronic Current Visit: Yes Qualifiers: Area of secondary neoplastic involvement: bone Qualified Code(s): C79.51 - Secondary malignant neoplasm of bone Annotation/Comment:: ribs/back, liver (11) Palliative care status SNOMED Code(s): 276971563 Code(s): Z51.5 - ENCOUNTER FOR PALLIATIVE CARE Status: Chronic Current Visit: Yes (12) Confusion SNOMED Code(s): 202916425 Code(s): R41.0 - DISORIENTATION, UNSPECIFIED Status: Chronic Current Visit: Yes Annotation/Comment:: Progressively worsening over the past few months. (13) Protein calorie malnutrition SNOMED Code(s): 888298489 Code(s): E46 - UNSPECIFIED PROTEIN-CALORIE MALNUTRITION Status: Acute Current Visit: Yes Qualifiers: Protein-calorie malnutrition severity: moderate Qualified Code(s): E44.0 - Moderate protein-calorie malnutrition Annotation/Comment:: Albumin 2.3. - Problem List Review Problem List Initiated/Reviewed/Updated: Yes - My Orders Last 24 Hours: My Active Orders 08/24/20 Lunch Regular Diet [DIET] 08/24/20 11:38 Patient Status [ADT] Routine Oxygen Therapy [RC] PRN Up With Assistance [RC] ASDIRECTED Up to Chair [RC] ASDIRECTED VTE/DVT Education [RC] Per Unit Routine Vital Signs [RC] Q4H OT Evaluation and Treatment [CONS] Routine PT Evaluation and Treatment [CONS] Routine Sodium Chloride 0.9% [Saline Flush] 10 ml FLUSH ASDIRECTED PRN Saline Lock Insert [OM.PC] Routine VTE Mechanical Contraindications [AST] Per Unit Routine VTE Pharmacological Contraindications [AST] Per Unit Routine Resuscitation Status Routine 08/24/20 11:40 Antiembolic Hose [OM.PC] Per Unit Routine 08/24/20 12:06 Head wo Cont [CT] Stat 08/24/20 13:09 OCCULT BLOOD SCREEN [OP] Routine 08/24/20 14:45 Sodium Chloride 0.9% [Normal Saline] 1,000 ml IV ASDIRECTED 08/24/20 15:41 Acetaminophen [Tylenol Arthritis Pain] 650 mg PO Q8H PRN 08/24/20 21:00 Acetaminophen/Diphenhydramine [Tylenol PM Extra Strength] 1 tab PO BEDTIME 08/25/20 07:30 Pantoprazole [ProTONIX] 40 mg PO ACBREAKFAST 08/25/20 09:00 Citalopram [Celexa] 40 mg PO DAILY Potassium Chloride [Klor-Con M20] 20 meq PO DAILY 08/25/20 09:13 Melatonin 6 mg PO BEDTIME PRN 08/25/20 09:15 Apixaban [Eliquis] 5 mg PO BID Loperamide [Imodium] 2 mg PO ASDIRECTED PRN 08/25/20 09:35 Dietary Supplements [RC] TIDAC Morphine 15 mg PO Q4H PRN 08/25/20 18:00 Calcium Carbonate [Oyster Shell Calcium] 1,500 mg PO BIDMEALS 08/25/20 21:00 Amitriptyline [Elavil] 75 mg PO BEDTIME Simvastatin [Zocor] 10 mg PO BEDTIME - Plan Plan:: 1. Recurrent falls/hyporeflexia/abnormal pupil/confusion: CT head was negative for acute process. Confusion most likely secondary to his cancer. 2. Falls/generalized weakness: PT/OT evaluate & treat today. 3. Hypomagnesemia/hypokalemia: Magnesium 400 mg bid repeat BMP & magnesium in AM. 4. Anemia/thrombocytopenia: repeat CBC tomorrow. FOB negative & UA hematuria. 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 Has been off chemo due to weakness. Discussion about hospice placement with Ari and his family. May need to talk with his oncologist to update his status with them. 6. Protein calorie malnutrition: Albumin 2.3. Dietary consult. Steadily decline over the past few months, no appetite even off chemotherapy since . 7. DVT prophylaxis: Eliquis 5 mg bid. TEDs BLE. 8. CODE STATUS: DNR/DNI. 9. Discharge: anticipate discharge 48-96 hr depending on response to PT/OT and electrolyte replacement, possible placement or hospice referral.
[2020-08-25] MEDS: Apixaban 5 MG Tab PO SCH ×2 (10:56→20:45)
[2020-08-25] MEDS: Magnesium Oxide 400 MG Tab PO SCH ×2 (10:56→20:46)
[2020-08-25] MEDS: Sodium Chloride 0.9% 10 ML Syringe FLUSH PRN (12:46)
[2020-08-25] MEDS ORDERED: Metoclopramide 5 MG Tab PO PRN (13:35)
[2020-08-25] MEDS ORDERED: Diatrizoate Meglumine/Diatrizoate Sodium 37% 30 ML Bottle PO ONE (16:23)
[2020-08-25] MEDS ORDERED: Iopamidol 755 Mg/ML 100 ML Bottle IV ONE (16:23)
[2020-08-25] MEDS: Calcium Carbonate 500 MG Tablet PO SCH (18:06)
[2020-08-25] MEDS: Amitriptyline 25 MG Tab PO SCH (20:42)
[2020-08-25] MEDS: Acetaminophen/Diphenhydramine 500-25 MG Tab PO SCH (20:43)
[2020-08-25] MEDS: Loperamide 2 MG Cap PO PRN ×2 (20:44→23:52)
[2020-08-25] MEDS: Simvastatin 10 MG Tab PO SCH (20:45)
[2020-08-26] MEDS: Morphine 15 MG Tab PO PRN (01:49)
[2020-08-26] MEDS: Loperamide 2 MG Cap PO PRN (01:49)
[2020-08-26] MEDS: Pantoprazole 40 MG Tab.CR PO SCH (06:41)
[2020-08-26] MEDS: Apixaban 5 MG Tab PO SCH ×2 (08:41→20:25)
[2020-08-26] MEDS: Magnesium Oxide 400 MG Tab PO SCH ×2 (08:41→20:25)
[2020-08-26] MEDS: Citalopram 20 MG Tab PO SCH (08:41)
[2020-08-26] MEDS: Potassium Chloride 20 MEQ Tab.ER PO SCH (08:41)
[2020-08-26] MEDS: Sodium Chloride 0.9% 10 ML Syringe FLUSH PRN (08:42)
[2020-08-26] MEDS: Calcium Carbonate 500 MG Tablet PO SCH ×2 (08:42→17:10)
--- NOTE | 2020-08-26 09:26 | PCM.PN ---
- General Info Date of Service: 08/26/20 Subjective Update: MME yesterday, Ari states he slept better. Required 2 assist to bathroom. Discussed with him that his goal is go home that he will need to work with thera py to get stronger and if he needs more time then we can do swingbed. No pain, no mouth pain or diarrhea. Still drinking well, not eating meals. - Patient Data Vitals - Most Recent: Last Vital Signs Temp 95.1 F L 08/26/20 06:40 Pulse 106 H 08/26/20 06:40 Resp 20 08/26/20 06:40 BP 112/84 08/26/20 06:40 Pulse Ox 93 L 08/26/20 06:40 Weight - Most Recent: 189 lb 8 oz Lab Results Last 24 Hours: Laboratory Results - last 24 hr 08/26/20 08/26/20 Range/Units 06:20 06:20 WBC 5.4 (3.2-10.1) x10-3/uL RBC 2.23 L (3.90-5.90) x10(6)uL Hgb 8.5 L (12.9-17.7) g/dL Hct 25.0 L (38.3-50.1) % MCV 112.1 H (80.8-98.7) fL MCH 38.0 H (27.0-33.3) pg MCHC 33.9 (28.7-35.3) g/dL RDW 18.0 H (12.4-15.0) % Plt Count 86 L (117-477) x10(3)uL MPV 6.7 (6.7-11.0) fL Neut % (Auto) 70.6 (40.3-71.8) % Lymph % (Auto) 19.6 (15.8-45.3) % Eaton % (Auto) 8.4 (5.5-15.2) % Eos % (Auto) 1.0 (0.1-6.8) % Baso % (Auto) 0.4 (0.3-3.8) % Neut # (Auto) 3.8 (1.7-6.9) x10-3/uL Lymph # (Auto) 1.1 (0.5-4.5) x10-3/uL Eaton # (Auto) 0.5 (0.0-1.2) x10-3/uL Eos # (Auto) 0.1 (0.0-0.6) x10-3/uL Baso # (Auto) 0.0 (0.0-0.3) x10-3/uL Sodium 140 (135-145) mmol/L Potassium 3.9 (3.5-5.3) mmol/L Chloride 104 (100-110) mmol/L Carbon Dioxide 28 (21-32) mmol/L BUN 8 (7-18) mg/dL Creatinine 0.7 (0.70-1.30) mg/dL Est Cr Clr Drug Dosing 121.63 mL/min Estimated GFR (MDRD) > 60 (>60) BUN/Creatinine Ratio 11.4 (9-20) Glucose 89 (80-116) mg/dL Calcium 7.2 L (8.6-10.2) mg/dL Magnesium 1.5 L (1.8-2.5) mg/dL Chris Results Last 24 Hours: Microbiology 08/25/20 20:35 Occult Blood - Preliminary Stool / Feces Med Orders - Current: Current Medications Acetaminophen (Acetaminophen 650 Mg Tab.Er) 650 mg PO Q8H PRN PRN Reason: Pain Acetaminophen/Diphenhydramine HCl (Acetaminophen/Diphenhydramine 500-25 Mg Tab) 1 tab PO BEDTIME [facility] Last Admin: 08/25/20 20:43 Dose: 1 tab Documented by: Amitriptyline HCl (Amitriptyline 25 Mg Tab) 75 mg PO BEDTIME [facility] Last Admin: 08/25/20 20:42 Dose: 75 mg Documented by: Apixaban (Apixaban 5 Mg Tab) 5 mg PO BID [facility] Last Admin: 08/26/20 08:41 Dose: 5 mg Documented by: Calcium Carbonate/Glycine (Calcium Carbonate 500 Mg Tablet) 1,500 mg PO BIDMEALS [facility] Last Admin: 08/26/20 08:42 Dose: 1,500 mg Documented by: Citalopram Hydrobromide (Citalopram 20 Mg Tab) 40 mg PO DAILY [facility] Last Admin: 08/26/20 08:41 Dose: 40 mg Documented by: Heparin Sodium (Porcine) (Heparin Sodium 100 Units/Ml 5 Ml Syringe) 500 units FLUSH ASDIRECTED PRN PRN Reason: Portacath flush Last Admin: 08/25/20 12:47 Dose: 500 units Documented by: Loperamide HCl (Loperamide 2 Mg Cap) 2 mg PO ASDIRECTED PRN PRN Reason: Diarrhea Last Admin: 08/26/20 01:49 Dose: 2 mg Documented by: Loperamide HCl (Loperamide 2 Mg Cap) 2 mg PO ASDIRECTED PRN PRN Reason: DIARRHEA Magnesium Oxide (Magnesium Oxide 400 Mg Tab) 400 mg PO BID [facility] Last Admin: 08/26/20 08:41 Dose: 400 mg Documented by: Melatonin (Melatonin 3 Mg Tab) 6 mg PO BEDTIME PRN PRN Reason: Insomnia Last Admin: 08/26/20 01:54 Dose: 6 mg Documented by: Metoclopramide HCl (Metoclopramide 5 Mg Tab) 5 mg PO Q6H PRN PRN Reason: Nausea/Vomiting Morphine Sulfate (Morphine 15 Mg Tab) 15 mg PO Q4H PRN PRN Reason: severe Pain Last Admin: 08/26/20 01:49 Dose: 15 mg Documented by: Pantoprazole Sodium (Pantoprazole 40 Mg Tab.Cr) 40 mg PO ACBREAKFAST [facility] Last Admin: 08/26/20 06:41 Dose: 40 mg Documented by: Potassium Chloride (Potassium Chloride 20 Meq Tab.Er) 20 meq PO DAILY [facility] Last Admin: 08/26/20 08:41 Dose: 20 meq Documented by: Simvastatin (Simvastatin 10 Mg Tab) 10 mg PO BEDTIME [facility] Last Admin: 08/25/20 20:45 Dose: 10 mg Documented by: Sodium Chloride (Sodium Chloride 0.9% 10 Ml Syringe) 10 ml FLUSH ASDIRECTED PRN PRN Reason: Keep Vein Open Last Admin: 08/26/20 08:42 Dose: 10 ml Documented by: Discontinued Medications Acetaminophen (Acetaminophen 650 Mg Tab.Er) 650 mg PO Q4H PRN PRN Reason: Pain Diatrizoate Meglum/Diatrizoate Sod (Diatrizoate Meglumine/Diatrizoate Sodium 37% 30 Ml Bottle) 30 ml PO ASDIRECTED ONE Stop: 08/25/20 16:24 Last Admin: 08/25/20 18:26 Dose: 30 ml Documented by: Magnesium Sulfate 4 gm/ Premix 50 mls @ 12.5 mls/hr IV ONETIME ONE Stop: 08/24/20 15:09 Last Admin: 08/24/20 11:29 Dose: 12.5 mls/hr Documented by: Sodium Chloride (Normal Saline) 1,000 mls @ 100 mls/hr IV ASDIRECTED DENEEN Stop: 08/26/20 00:44 Last Admin: 08/25/20 01:11 Dose: 100 mls/hr Documented by: Iopamidol (Iopamidol 755 Mg/Ml 100 Ml Bottle) 100 ml IV . DIRECTED ONE Stop: 08/25/20 16:24 Last Admin: 08/25/20 18:26 Dose: 95 ml Documented by: Loperamide HCl (Loperamide 2 Mg Cap) 4 mg PO ONETIME ONE Stop: 08/24/20 20:28 Last Admin: 08/24/20 20:57 Dose: 4 mg Documented by: Potassium Chloride (Potassium Chloride 20 Meq Tab.Er) 40 meq PO ONETIME ONE Stop: 08/24/20 11:12 Last Admin: 08/24/20 11:29 Dose: 40 meq Documented by: - Exam Central Line Total Time: 1Days 7Hours General: Alert, Oriented, Cooperative, No Acute Distress Lungs: Clear to Auscultation, Normal Respiratory Effort Cardiovascular: Regular Rate, Regular Rhythm GI/Abdominal Exam: Normal Bowel Sounds, Soft, Non-Tender, No Distention Extremities: No Pedal Edema - Patient Data Lab Results Last 24 hrs: Laboratory Results - last 24 hr 08/26/20 08/26/20 Range/Units 06:20 06:20 WBC 5.4 (3.2-10.1) x10-3/uL RBC 2.23 L (3.90-5.90) x10(6)uL Hgb 8.5 L (12.9-17.7) g/dL Hct 25.0 L (38.3-50.1) % MCV 112.1 H (80.8-98.7) fL MCH 38.0 H (27.0-33.3) pg MCHC 33.9 (28.7-35.3) g/dL RDW 18.0 H (12.4-15.0) % Plt Count 86 L (117-477) x10(3)uL MPV 6.7 (6.7-11.0) fL Neut % (Auto) 70.6 (40.3-71.8) % Lymph % (Auto) 19.6 (15.8-45.3) % Eaton % (Auto) 8.4 (5.5-15.2) % Eos % (Auto) 1.0 (0.1-6.8) % Baso % (Auto) 0.4 (0.3-3.8) % Neut # (Auto) 3.8 (1.7-6.9) x10-3/uL Lymph # (Auto) 1.1 (0.5-4.5) x10-3/uL Eaton # (Auto) 0.5 (0.0-1.2) x10-3/uL Eos # (Auto) 0.1 (0.0-0.6) x10-3/uL Baso # (Auto) 0.0 (0.0-0.3) x10-3/uL Sodium 140 (135-145) mmol/L Potassium 3.9 (3.5-5.3) mmol/L Chloride 104 (100-110) mmol/L Carbon Dioxide 28 (21-32) mmol/L BUN 8 (7-18) mg/dL Creatinine 0.7 (0.70-1.30) mg/dL Est Cr Clr Drug Dosing 121.63 mL/min Estimated GFR (MDRD) > 60 (>60) BUN/Creatinine Ratio 11.4 (9-20) Glucose 89 (80-116) mg/dL Calcium 7.2 L (8.6-10.2) mg/dL Magnesium 1.5 L (1.8-2.5) mg/dL Result Diagrams: 08/26/20 06:20 08/26/20 06:20 Chris Results Last 24 hrs: Microbiology 08/25/20 20:35 Occult Blood - Preliminary Stool / Feces Sepsis Event Note - Evaluation Sepsis Screening Result: No Definite Risk - Focused Exam Vital Signs: Vital Signs Temp Pulse Resp BP Pulse Ox 08/26/20 06:40 95.1 F L 106 H 20 112/84 93 L 08/25/20 23:47 98.0 F 95 18 127/85 98 - Problem List & Annotations (1) Hypomagnesemia SNOMED Code(s): 515787120 Code(s): E83.42 - HYPOMAGNESEMIA Status: Acute Current Visit: Yes Annotation/Comment:: stable, 1.5 today. Continue oral supplementation. 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): 721020903 Code(s): Q13.2 - OTHER CONGENITAL MALFORMATIONS OF IRIS Status: Acute Current Visit: Yes Annotation/Comment:: CT no acute changes (4) Hyporeflexia SNOMED Code(s): 44685899 Code(s): R29.2 - ABNORMAL REFLEX Status: Acute Current Visit: Yes (5) Recurrent falls SNOMED Code(s): 318165872 Code(s): R29.6 - REPEATED FALLS Status: Acute Current Visit: Yes (6) Thrombocytopenia SNOMED Code(s): 696075582 Code(s): D69.6 - THROMBOCYTOPENIA, UNSPECIFIED Status: Acute Current Visit: Yes Annotation/Comment:: stable (7) Anemia SNOMED Code(s): 473461566 Code(s): D64.9 - ANEMIA, UNSPECIFIED Status: Acute Current Visit: Yes Qualifiers: Other causes of anemia: nutritional, unspecified Annotation/Comment:: stable (8) Bile duct cancer SNOMED Code(s): 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 Code(s): C24.0 - MALIGNANT NEOPLASM OF EXTRAHEPATIC BILE DUCT Status: Chronic Current Visit: Yes (9) Metastasis SNOMED Code(s): 869929734 Code(s): C79.9 - SECONDARY MALIGNANT NEOPLASM OF UNSPECIFIED SITE Status: Chronic Current Visit: Yes Qualifiers: Area of secondary neoplastic involvement: bone Qualified Code(s): C79.51 - Secondary malignant neoplasm of bone Annotation/Comment:: ribs/back, liver (10) Mild neurocognitive disorder SNOMED Code(s): 070698680 Code(s): G31.84 - MILD COGNITIVE IMPAIRMENT, SO STATED Status: Acute Current Visit: Yes (11) Confusion SNOMED Code(s): 157989514 Code(s): R41.0 - DISORIENTATION, UNSPECIFIED Status: Chronic Current Visit: Yes Annotation/Comment:: Progressively worsening over the past few months. MME 24, mild neurocognitive deficit. (12) Protein calorie malnutrition SNOMED Code(s): 804466741 Code(s): E46 - UNSPECIFIED PROTEIN-CALORIE MALNUTRITION Status: Acute Current Visit: Yes Qualifiers: Protein-calorie malnutrition severity: moderate Qualified Code(s): E44.0 - Moderate protein-calorie malnutrition Annotation/Comment:: Albumin 2.3. (13) Hypokalemia SNOMED Code(s): 27348137 Code(s): E87.6 - HYPOKALEMIA Status: Resolved Current Visit: Yes (14) Palliative care status SNOMED Code(s): 775482072 Code(s): Z51.5 - ENCOUNTER FOR PALLIATIVE CARE Status: Chronic Current Visit: Yes - Problem List Review Problem List Initiated/Reviewed/Updated: Yes - My Orders Last 24 Hours: My Active Orders 08/25/20 09:00 Citalopram [Celexa] 40 mg PO DAILY Potassium Chloride [Klor-Con M20] 20 meq PO DAILY 08/25/20 09:13 Melatonin 6 mg PO BEDTIME PRN 08/25/20 09:15 Apixaban [Eliquis] 5 mg PO BID Loperamide [Imodium] 2 mg PO ASDIRECTED PRN 08/25/20 09:35 Dietary Supplements [RC] TIDAC Morphine 15 mg PO Q4H PRN 08/25/20 10:26 Consult to Dietary [Consult to Teacher Lip Reading] [CONS] Routine 08/25/20 10:45 Magnesium Oxide 400 mg PO BID 08/25/20 11:57 Heparin Sodium [Heparin Lock Flush 100 Units/ML] 500 units FLUSH ASDIRECTED PRN 08/25/20 13:35 Metoclopramide [Reglan] 5 mg PO Q6H PRN 08/25/20 14:52 Chest Abdomen Pelvis w Cont [CT] Routine 08/25/20 18:00 Calcium Carbonate [Oyster Shell Calcium] 1,500 mg PO BIDMEALS 08/25/20 20:35 OCCULT BLOOD SCREEN [OP] Routine 08/25/20 21:00 Amitriptyline [Elavil] 75 mg PO BEDTIME Simvastatin [Zocor] 10 mg PO BEDTIME - Plan Plan:: 1. Falls/generalized weakness: PT/OT, stressed with Ari that needs to work with therapy if his goal is to go home. 2. Hypomagnesemia/hypokalemia: Magnesium 400 mg bid. 3. Anemia/thrombocytopenia: stable. 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 If he would need therapy longer, then if insurance would approve, we could place in swing bed and he can go to his oncology appt on Tuesday. 5. Protein calorie malnutrition: Albumin 2.3. Dietary consult. Steadily decline over the past few months, no appetite even off chemotherapy since . 6. DVT prophylaxis: Eliquis 5 mg bid. TEDs BLE. 7. CODE STATUS: DNR/DNI. 8. Discharge: needs safe discharge, requiring 2 person assist currently.
[2020-08-26] MEDS: Simvastatin 10 MG Tab PO SCH (20:25)
[2020-08-26] MEDS: Acetaminophen/Diphenhydramine 500-25 MG Tab PO SCH (20:25)
[2020-08-26] MEDS: Amitriptyline 25 MG Tab PO SCH (20:25)
[2020-08-27] MEDS: Pantoprazole 40 MG Tab.CR PO SCH (06:42)
[2020-08-27] MEDS: Potassium Chloride 20 MEQ Tab.ER PO SCH (08:29)
[2020-08-27] MEDS: Calcium Carbonate 500 MG Tablet PO SCH ×2 (08:30→17:52)
[2020-08-27] MEDS: Magnesium Oxide 400 MG Tab PO SCH ×2 (08:30→20:17)
[2020-08-27] MEDS: Apixaban 5 MG Tab PO SCH ×2 (08:30→20:18)
[2020-08-27] MEDS: Citalopram 20 MG Tab PO SCH (08:30)
--- NOTE | 2020-08-27 11:14 | PCM.PN ---
- General Info Date of Service: 08/27/20 Subjective Update: Had trouble swallowing his pills yesterday, speech therapy did bedside evaluation as well as cognitive screen. He has been getting Tylenol PM to help sleep which could also contribute to dry mouth. Speech noted that his mouth was very dry with some bleeding of his tongue, no lesions. He has been mainly drinking liquids and doing protein supplements. Today he did eat caramel roll and some cream of wheat. His CT scan show mets to the bone and enlargement of l iver mass from his scan in June 2020, some pleural effusions and ascites. His MOCA cognitive screen was 02/05, poor insight. - Patient Data Vitals - Most Recent: Last Vital Signs Temp 97.6 F 08/27/20 08:00 Pulse 107 H 08/27/20 08:00 Resp 18 08/27/20 08:00 BP 109/81 08/27/20 08:00 Pulse Ox 98 08/27/20 08:00 Weight - Most Recent: 189 lb 8 oz I&O - Last 24 Hours: Intake & Output 08/26/20 08/27/20 08/27/20 22:59 06:59 14:59 Intake Total 240 Balance 240 Med Orders - Current: Current Medications Acetaminophen (Acetaminophen 650 Mg Tab.Er) 650 mg PO Q8H PRN PRN Reason: Pain Amitriptyline HCl (Amitriptyline 25 Mg Tab) 75 mg PO BEDTIME [facility] Last Admin: 08/26/20 20:25 Dose: 75 mg Documented by: Apixaban (Apixaban 5 Mg Tab) 5 mg PO BID [facility] Last Admin: 08/27/20 08:30 Dose: 5 mg Documented by: Calcium Carbonate/Glycine (Calcium Carbonate 500 Mg Tablet) 1,500 mg PO BIDMEALS [facility] Last Admin: 08/27/20 08:30 Dose: 1,500 mg Documented by: Citalopram Hydrobromide (Citalopram 20 Mg Tab) 40 mg PO DAILY [facility] Last Admin: 08/27/20 08:30 Dose: 40 mg Documented by: Heparin Sodium (Porcine) (Heparin Sodium 100 Units/Ml 5 Ml Syringe) 500 units FLUSH ASDIRECTED PRN PRN Reason: Portacath flush Last Admin: 08/25/20 12:47 Dose: 500 units Documented by: Loperamide HCl (Loperamide 2 Mg Cap) 2 mg PO ASDIRECTED PRN PRN Reason: DIARRHEA Magnesium Oxide (Magnesium Oxide 400 Mg Tab) 400 mg PO BID [facility] Last Admin: 08/27/20 08:30 Dose: 400 mg Documented by: Melatonin (Melatonin 3 Mg Tab) 6 mg PO BEDTIME [facility] Metoclopramide HCl (Metoclopramide 5 Mg Tab) 5 mg PO Q6H PRN PRN Reason: Nausea/Vomiting Morphine Sulfate (Morphine 15 Mg Tab) 15 mg PO Q4H PRN PRN Reason: severe Pain Last Admin: 08/26/20 01:49 Dose: 15 mg Documented by: Pantoprazole Sodium (Pantoprazole 40 Mg Tab.Cr) 40 mg PO ACBREAKFAST [facility] Last Admin: 08/27/20 06:42 Dose: 40 mg Documented by: Potassium Chloride (Potassium Chloride 20 Meq Tab.Er) 20 meq PO DAILY [facility] Last Admin: 08/27/20 08:29 Dose: 20 meq Documented by: Simvastatin (Simvastatin 10 Mg Tab) 10 mg PO BEDTIME [facility] Last Admin: 08/26/20 20:25 Dose: 10 mg Documented by: Sodium Chloride (Sodium Chloride 0.9% 10 Ml Syringe) 10 ml FLUSH ASDIRECTED PRN PRN Reason: Keep Vein Open Last Admin: 08/26/20 08:42 Dose: 10 ml Documented by: Discontinued Medications Acetaminophen (Acetaminophen 650 Mg Tab.Er) 650 mg PO Q4H PRN PRN Reason: Pain Acetaminophen/Diphenhydramine HCl (Acetaminophen/Diphenhydramine 500-25 Mg Tab) 1 tab PO BEDTIME [facility] Last Admin: 08/26/20 20:25 Dose: 1 tab Documented by: Diatrizoate Meglum/Diatrizoate Sod (Diatrizoate Meglumine/Diatrizoate Sodium 37% 30 Ml Bottle) 30 ml PO ASDIRECTED ONE Stop: 08/25/20 16:24 Last Admin: 08/25/20 18:26 Dose: 30 ml Documented by: Magnesium Sulfate 4 gm/ Premix 50 mls @ 12.5 mls/hr IV ONETIME ONE Stop: 08/24/20 15:09 Last Admin: 08/24/20 11:29 Dose: 12.5 mls/hr Documented by: Sodium Chloride (Normal Saline) 1,000 mls @ 100 mls/hr IV ASDIRECTED DENEEN Stop: 08/26/20 00:44 Last Admin: 08/25/20 01:11 Dose: 100 mls/hr Documented by: Iopamidol (Iopamidol 755 Mg/Ml 100 Ml Bottle) 100 ml IV . DIRECTED ONE Stop: 08/25/20 16:24 Last Admin: 08/25/20 18:26 Dose: 95 ml Documented by: Loperamide HCl (Loperamide 2 Mg Cap) 4 mg PO ONETIME ONE Stop: 08/24/20 20:28 Last Admin: 08/24/20 20:57 Dose: 4 mg Documented by: Loperamide HCl (Loperamide 2 Mg Cap) 2 mg PO ASDIRECTED PRN PRN Reason: Diarrhea Last Admin: 08/26/20 01:49 Dose: 2 mg Documented by: Melatonin (Melatonin 3 Mg Tab) 6 mg PO BEDTIME PRN PRN Reason: Insomnia Last Admin: 08/26/20 01:54 Dose: 6 mg Documented by: Potassium Chloride (Potassium Chloride 20 Meq Tab.Er) 40 meq PO ONETIME ONE Stop: 08/24/20 11:12 Last Admin: 08/24/20 11:29 Dose: 40 meq Documented by: - Exam Central Line Total Time: 1Days 7Hours General: Alert, Oriented (person, place; pleasantly confused), Cooperative, No Acute Distress HEENT: No: Mucous Membr. Moist/Nason (dry, some evidence of blood on tip of his tongue) Lungs: Clear to Auscultation, Normal Respiratory Effort Cardiovascular: Regular Rate, Regular Rhythm GI/Abdominal Exam: Normal Bowel Sounds, Soft, Non-Tender, Distended (Male) Exam: Deferred Extremities: No Pedal Edema - Patient Data Result Diagrams: 08/26/20 06:20 08/26/20 06:20 Sepsis Event Note - Evaluation Sepsis Screening Result: No Definite Risk - Focused Exam Vital Signs: Vital Signs Temp Temp Pulse Resp BP Pulse Ox 08/27/20 08:00 97.6 F 107 H 18 109/81 98 08/27/20 00:00 97.3 F 100 18 131/89 96 - Problem List & Annotations (1) Hypomagnesemia SNOMED Code(s): 358267911 Code(s): E83.42 - HYPOMAGNESEMIA Status: Acute Current Visit: Yes Annotation/Comment:: stable, 1.5 08/26. Continue oral supplementation, repeat in a few days. (2) Weakness SNOMED Code(s): 22193399 Code(s): R53.1 - WEAKNESS Status: Acute Current Visit: Yes (3) Anomaly of right pupil SNOMED Code(s): 008735128 Code(s): Q13.2 - OTHER CONGENITAL MALFORMATIONS OF IRIS Status: Acute Current Visit: Yes Annotation/Comment:: CT no acute changes (4) Hyporeflexia SNOMED Code(s): 41315076 Code(s): R29.2 - ABNORMAL REFLEX Status: Acute Current Visit: Yes (5) Recurrent falls SNOMED Code(s): 944631971 Code(s): R29.6 - REPEATED FALLS Status: Acute Current Visit: Yes (6) Thrombocytopenia SNOMED Code(s): 623855508 Code(s): D69.6 - THROMBOCYTOPENIA, UNSPECIFIED Status: Acute Current Visit: Yes Annotation/Comment:: stable (7) Anemia SNOMED Code(s): 496958673 Code(s): D64.9 - ANEMIA, UNSPECIFIED Status: Acute Current Visit: Yes Qualifiers: Other causes of anemia: nutritional, unspecified Annotation/Comment:: stable (8) Bile duct cancer SNOMED Code(s): 914021810 Code(s): C24.0 - MALIGNANT NEOPLASM OF EXTRAHEPATIC BILE DUCT Status: Chronic Current Visit: Yes Onset Date: ~2018 (9) Metastasis SNOMED Code(s): 714346811 Code(s): C79.9 - SECONDARY MALIGNANT NEOPLASM OF UNSPECIFIED SITE Status: Chronic Current Visit: Yes Qualifiers: Area of secondary neoplastic involvement: bone Qualified Code(s): C79.51 - Secondary malignant neoplasm of bone Annotation/Comment:: ribs/back, liver (10) Mild neurocognitive disorder SNOMED Code(s): 167876374 Code(s): G31.84 - MILD COGNITIVE IMPAIRMENT, SO STATED Status: Acute Current Visit: Yes (11) Confusion SNOMED Code(s): 032304780 Code(s): R41.0 - DISORIENTATION, UNSPECIFIED Status: Chronic Current Visit: Yes Annotation/Comment:: Progressively worsening over the past few months. MME 24/30, mild neurocognitive deficit. (12) Protein calorie malnutrition SNOMED Code(s): 782183431 Code(s): E46 - UNSPECIFIED PROTEIN-CALORIE MALNUTRITION Status: Acute Current Visit: Yes Qualifiers: Protein-calorie malnutrition severity: moderate Qualified Code(s): E44.0 - Moderate protein-calorie malnutrition Annotation/Comment:: Albumin 2.3. (13) Hypokalemia SNOMED Code(s): 30322232 Code(s): E87.6 - HYPOKALEMIA Status: Resolved Current Visit: Yes (14) Palliative care status SNOMED Code(s): 127068315 Code(s): Z51.5 - ENCOUNTER FOR PALLIATIVE CARE Status: Chronic Current Visit: Yes (15) Bilateral pleural effusion SNOMED Code(s): 715220973 Code(s): J90 - PLEURAL EFFUSION, NOT ELSEWHERE CLASSIFIED Status: Acute Current Visit: Yes (16) Abdominal ascites SNOMED Code(s): 682180409 Code(s): R18.8 - OTHER ASCITES Status: Acute Current Visit: Yes Qualifiers: Ascites type: malignant Qualified Code(s): R18.0 - Malignant ascites - Problem List Review Problem List Initiated/Reviewed/Updated: Yes - My Orders Last 24 Hours: My Active Orders 08/26/20 11:07 Consult to Speech Language Pathology [BRAID MAKER Evaluation and Treatment] [CONS] Routine 08/27/20 09:38 Communication Order [RC] ROUTINE 08/27/20 21:00 Melatonin 6 mg PO BEDTIME - Plan Plan:: 1. Falls/generalized weakness: PT/OT. 2. Hypomagnesemia/hypokalemia: Magnesium 400 mg bid. Hypokalemia resolved. 3. Dry mouth: discontinue Tylenol PM, changed Melatonin to schedule to help with his sleep. Caio-Stir as needed dry mouth. 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 5. Protein calorie malnutrition: Albumin 2.3. Dietary consult. Steadily decline over the past few months, no appetite even off chemotherapy since . 6. Neurocognitive deficits: MOCA screen 02/05, his sister is POA for him. Poor insight into his mental state. 7. CODE STATUS: DNR/DNI. 8. Discharge: Would benefit from Hospice, he wants to go home, but currently does not have a caregiver that could stay with him to do Hospice at home. He is requiring 2 person assist for ambulation, needs safe discharge. Depending on PT /OT possible could do swing bed for therapy so he could go back home and if elects not to do chemotherapy then could go on Hospice at that time.
[2020-08-27] MEDS: Melatonin 3 MG Tab PO SCH (20:17)
[2020-08-27] MEDS: Amitriptyline 25 MG Tab PO SCH (20:17)
[2020-08-27] MEDS: Simvastatin 10 MG Tab PO SCH (20:18)
[2020-08-27] MEDS: Loperamide 2 MG Cap PO PRN (20:26)
[2020-08-28] MEDS: Pantoprazole 40 MG Tab.CR PO SCH (06:42)
[2020-08-28] MEDS ORDERED: Alum Hydroxide/Mag Hydroxide 30 ML, Lidocaine 2% 30 ML, diphenhydrAMINE 75 MG PO PRN ×3 (08:44)
[2020-08-28] MEDS ORDERED: Calcium Carbonate 500 MG Tab.Chew PO PRN (08:47)
[2020-08-28] MEDS: Apixaban 5 MG Tab PO SCH ×2 (08:50→20:59)
[2020-08-28] MEDS: Citalopram 20 MG Tab PO SCH (08:50)
[2020-08-28] MEDS: Magnesium Oxide 400 MG Tab PO SCH ×2 (08:50→20:58)
[2020-08-28] MEDS: Potassium Chloride 20 MEQ Tab.ER PO SCH (08:50)
[2020-08-28] MEDS: Dexamethasone 4 MG Tab PO SCH (08:55)
[2020-08-28] MEDS: Calcium Carbonate 500 MG Tablet PO SCH (08:55)
--- NOTE | 2020-08-28 11:40 | PCM.PN ---
- General Info Date of Service: 08/28/20 Subjective Update: Ari had emesis last night after trying to swallow his Calcium pills, states to staff that he has been having problems with larger pills. He declined Cepacol lozenge last night for mouth pain. Been drinking but not eating well. Small BM yesterday. PT/OT stated his proprioception is not good with his neuropathy, not sure where his legs are when he standings, his legs buckle and if feels bed then he can stand better. They stated his neuropathy is more of his issue walking than weakness. He also noticed some swelling in his left neck. No sores in his mouth, just dry. Stated he slept well. - Patient Data Vitals - Most Recent: Last Vital Signs Temp 98.6 F 08/28/20 08:00 Pulse 91 08/28/20 08:00 Resp 14 08/28/20 08:00 BP 111/78 08/28/20 08:00 Pulse Ox 97 08/28/20 08:00 Weight - Most Recent: 189 lb 8 oz Med Orders - Current: Current Medications Acetaminophen (Acetaminophen 650 Mg Tab.Er) 650 mg PO Q8H PRN PRN Reason: Pain Amitriptyline HCl (Amitriptyline 25 Mg Tab) 75 mg PO BEDTIME [facility] Last Admin: 08/27/20 20:17 Dose: 75 mg Documented by: Apixaban (Apixaban 5 Mg Tab) 5 mg PO BID [facility] Last Admin: 08/28/20 08:50 Dose: 5 mg Documented by: Calcium Carbonate/Glycine (Calcium Carbonate 500 Mg Tab.Chew) 500 mg PO Q4H PRN PRN Reason: HEARTBURN Citalopram Hydrobromide (Citalopram 20 Mg Tab) 40 mg PO DAILY [facility] Last Admin: 08/28/20 08:50 Dose: 40 mg Documented by: Al Hydroxide/Mg Hydroxide 30 ml/ Lidocaine HCl 30 ml/Diphenhydramine HCl 75 mg 0 ml PO Q4H PRN PRN Reason: MOUTH PAIN Dexamethasone (Dexamethasone 4 Mg Tab) 4 mg PO DAILY [facility] Last Admin: 08/28/20 08:55 Dose: 4 mg Documented by: Heparin Sodium (Porcine) (Heparin Sodium 100 Units/Ml 5 Ml Syringe) 500 units FLUSH ASDIRECTED PRN PRN Reason: Portacath flush Last Admin: 08/25/20 12:47 Dose: 500 units Documented by: Loperamide HCl (Loperamide 2 Mg Cap) 2 mg PO ASDIRECTED PRN PRN Reason: DIARRHEA Last Admin: 08/27/20 20:26 Dose: 2 mg Documented by: Magnesium Oxide (Magnesium Oxide 400 Mg Tab) 400 mg PO BID [facility] Last Admin: 08/28/20 08:50 Dose: 400 mg Documented by: Melatonin (Melatonin 3 Mg Tab) 6 mg PO BEDTIME [facility] Last Admin: 08/27/20 20:17 Dose: 6 mg Documented by: Metoclopramide HCl (Metoclopramide 5 Mg Tab) 5 mg PO Q6H PRN PRN Reason: Nausea/Vomiting Morphine Sulfate (Morphine 15 Mg Tab) 15 mg PO Q4H PRN PRN Reason: severe Pain Last Admin: 08/26/20 01:49 Dose: 15 mg Documented by: Pantoprazole Sodium (Pantoprazole 40 Mg Tab.Cr) 40 mg PO ACBREAKFAST [facility] Last Admin: 08/28/20 06:42 Dose: 40 mg Documented by: Potassium Chloride (Potassium Chloride 20 Meq Tab.Er) 20 meq PO DAILY [facility] Last Admin: 08/28/20 08:50 Dose: 20 meq Documented by: Simvastatin (Simvastatin 10 Mg Tab) 10 mg PO BEDTIME [facility] Last Admin: 08/27/20 20:18 Dose: 10 mg Documented by: Sodium Chloride (Sodium Chloride 0.9% 10 Ml Syringe) 10 ml FLUSH ASDIRECTED PRN PRN Reason: Keep Vein Open Last Admin: 08/26/20 08:42 Dose: 10 ml Documented by: Discontinued Medications Acetaminophen (Acetaminophen 650 Mg Tab.Er) 650 mg PO Q4H PRN PRN Reason: Pain Acetaminophen/Diphenhydramine HCl (Acetaminophen/Diphenhydramine 500-25 Mg Tab) 1 tab PO BEDTIME [facility] Last Admin: 08/26/20 20:25 Dose: 1 tab Documented by: Calcium Carbonate/Glycine (Calcium Carbonate 500 Mg Tablet) 1,500 mg PO BIDMEALS [facility] Last Admin: 08/28/20 08:55 Dose: Not Given Documented by: Diatrizoate Meglum/Diatrizoate Sod (Diatrizoate Meglumine/Diatrizoate Sodium 37% 30 Ml Bottle) 30 ml PO ASDIRECTED ONE Stop: 08/25/20 16:24 Last Admin: 08/25/20 18:26 Dose: 30 ml Documented by: Magnesium Sulfate 4 gm/ Premix 50 mls @ 12.5 mls/hr IV ONETIME ONE Stop: 08/24/20 15:09 Last Admin: 08/24/20 11:29 Dose: 12.5 mls/hr Documented by: Sodium Chloride (Normal Saline) 1,000 mls @ 100 mls/hr IV ASDIRECTED [facility] Stop: 08/26/20 00:44 Last Admin: 08/25/20 01:11 Dose: 100 mls/hr Documented by: Iopamidol (Iopamidol 755 Mg/Ml 100 Ml Bottle) 100 ml IV . DIRECTED ONE Stop: 08/25/20 16:24 Last Admin: 08/25/20 18:26 Dose: 95 ml Documented by: Loperamide HCl (Loperamide 2 Mg Cap) 4 mg PO ONETIME ONE Stop: 08/24/20 20:28 Last Admin: 08/24/20 20:57 Dose: 4 mg Documented by: Loperamide HCl (Loperamide 2 Mg Cap) 2 mg PO ASDIRECTED PRN PRN Reason: Diarrhea Last Admin: 08/26/20 01:49 Dose: 2 mg Documented by: Melatonin (Melatonin 3 Mg Tab) 6 mg PO BEDTIME PRN PRN Reason: Insomnia Last Admin: 08/26/20 01:54 Dose: 6 mg Documented by: Potassium Chloride (Potassium Chloride 20 Meq Tab.Er) 40 meq PO ONETIME ONE Stop: 08/24/20 11:12 Last Admin: 08/24/20 11:29 Dose: 40 meq Documented by: - Exam Central Line Total Time: 1Days 7Hours General: Alert, Oriented (person), Cooperative, No Acute Distress HEENT: No: Mucous Membr. Moist/[place] (No sores, No erythema along his gum lines; Left buccal mucosa tender but no erythema; Tongue dry, erythematous) Neck: Trachea Midline, Lymphadenopathy (left anterior cervical) Lungs: Clear to Auscultation, Normal Respiratory Effort Cardiovascular: Regular Rate, Regular Rhythm GI/Abdominal Exam: Normal Bowel Sounds, Soft, Non-Tender, No Distention Peripheral Pulses: 2+: Radial (L), Radial (R) - Patient Data Result Diagrams: 08/26/20 06:20 08/26/20 06:20 Sepsis Event Note - Evaluation Sepsis Screening Result: No Definite Risk - Focused Exam Vital Signs: Vital Signs Temp Temp Pulse Resp BP Pulse Ox 08/28/20 08:00 98.6 F 91 14 111/78 97 08/28/20 03:00 98.4 F 102 H 18 117/81 96 - Problem List & Annotations (1) Hypomagnesemia SNOMED Code(s): 714582315 Code(s): E83.42 - HYPOMAGNESEMIA Status: Acute Current Visit: Yes Annotation/Comment:: Mag, BMP, Albumin tomorrow. Stable 1.5. (2) Weakness SNOMED Code(s): 22303282 Code(s): R53.1 - WEAKNESS Status: Acute Current Visit: Yes (3) Anomaly of right pupil SNOMED Code(s): 313772823 Code(s): Q13.2 - OTHER CONGENITAL MALFORMATIONS OF IRIS Status: Acute Current Visit: Yes Annotation/Comment:: CT no acute changes (4) Hyporeflexia SNOMED Code(s): 40875370 Code(s): R29.2 - ABNORMAL REFLEX Status: Acute Current Visit: Yes (5) Recurrent falls SNOMED Code(s): 327854587 Code(s): R29.6 - REPEATED FALLS Status: Acute Current Visit: Yes (6) Thrombocytopenia SNOMED Code(s): 854522168 Code(s): D69.6 - THROMBOCYTOPENIA, UNSPECIFIED Status: Acute Current Visit: Yes Annotation/Comment:: stable (7) Anemia SNOMED Code(s): 956500712 Code(s): D64.9 - ANEMIA, UNSPECIFIED Status: Acute Current Visit: Yes Qualifiers: Other causes of anemia: nutritional, unspecified Annotation/Comment:: stable (8) Bile duct cancer SNOMED Code(s): 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 Code(s): C24.0 - MALIGNANT NEOPLASM OF EXTRAHEPATIC BILE DUCT Status: Chronic Current Visit: Yes Onset Date: ~2018 (9) Metastasis SNOMED Code(s): 385380308 Code(s): C79.9 - SECONDARY MALIGNANT NEOPLASM OF UNSPECIFIED SITE Status: Chronic Current Visit: Yes Qualifiers: Area of secondary neoplastic involvement: bone Qualified Code(s): C79.51 - Secondary malignant neoplasm of bone Annotation/Comment:: ribs/back, liver (10) Mild neurocognitive disorder SNOMED Code(s): 612587625 Code(s): G31.84 - MILD COGNITIVE IMPAIRMENT, SO STATED Status: Acute Current Visit: Yes (11) Confusion SNOMED Code(s): 798166269 Code(s): R41.0 - DISORIENTATION, UNSPECIFIED Status: Chronic Current Visit: Yes Annotation/Comment:: Progressively worsening over the past few months. MME , mild neurocognitive deficit. (12) Protein calorie malnutrition SNOMED Code(s): 640277586 Code(s): E46 - UNSPECIFIED PROTEIN-CALORIE MALNUTRITION Status: Acute Current Visit: Yes Qualifiers: Protein-calorie malnutrition severity: moderate Qualified Code(s): E44.0 - Moderate protein-calorie malnutrition Annotation/Comment:: Albumin 2.3. 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 SNOMED Code(s): 458997594 Code(s): C80.1 - MALIGNANT (PRIMARY) NEOPLASM, UNSPECIFIED; G63 - POLYNEUROPATHY IN DISEASES CLASSIFIED ELSEWHERE Status: Acute Current Visit: Yes - Problem List Review Problem List Initiated/Reviewed/Updated: Yes - My Orders Last 24 Hours: My Active Orders 08/27/20 21:00 Melatonin 6 mg PO BEDTIME 08/28/20 08:44 Alum Hydroxide/Mag Hydroxide [Mag-Al Susp] 30 ml Lidocaine 2% [Xylocaine 2% Viscous] 30 ml diphenhydrAMINE [Benadryl] 75 mg PO Q4H 08/28/20 08:47 Calcium Carbonate [Tums] 500 mg PO Q4H PRN 08/28/20 09:00 dexAMETHasone 4 mg PO DAILY 08/29/20 06:00 ALBUMIN [CHEM] Routine BASIC METABOLIC PANEL,BMP [CHEM] Routine MAGNESIUM [CHEM] Routine - Plan Plan:: 1. Falls/generalized weakness/neuropathy: PT/OT. 2. Hypomagnesemia/hypokalemia: Magnesium 400 mg bid. Repeat tomorrow. 3. Dry mouth: Magic mouthwash swish & spit, Caio-stir as needed. 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 5. Protein calorie malnutrition: Albumin 2.3. Dexamethasone 4 mg daily. 6. Neurocognitive deficits: MOCA screen 02/05, his sister is POA for him. Poor insight into his mental state. 7. Discharge: Accepted at [facility] for TuesdaySeptember 01 at 10 am. Has had Covid vaccination and recent chest x-ray, will not need Covid or TB testing prior to discharge.
[2020-08-28] MEDS: Amitriptyline 25 MG Tab PO SCH (20:58)
[2020-08-28] MEDS: Melatonin 3 MG Tab PO SCH (20:58)
[2020-08-28] MEDS: Simvastatin 10 MG Tab PO SCH (20:58)
[2020-08-29] MEDS: Pantoprazole 40 MG Tab.CR PO SCH (06:32)
[2020-08-29] MEDS: Citalopram 20 MG Tab PO SCH (08:21)
[2020-08-29] MEDS: Dexamethasone 4 MG Tab PO SCH (08:21)
[2020-08-29] MEDS: Apixaban 5 MG Tab PO SCH ×2 (08:21→20:27)
[2020-08-29] MEDS ORDERED: Alum Hydroxide/Mag Hydroxide 30 ML, Lidocaine 2% 30 ML, diphenhydrAMINE 75 MG PO PRN ×3 (14:00)
--- NOTE | 2020-08-29 14:33 | PCM.PN ---
- General Info Date of Service: 08/29/20 Subjective Update: Ari stated that the magic mouthwash helped for about 2 hours then his mouth was back to dry. He denies any nausea, vomiting. No diarrhea. Feels lymph nodes are better today, not as swollen. - Patient Data Vitals - Most Recent: Last Vital Signs Temp 98.1 F 08/29/20 08:00 Pulse 86 08/29/20 08:00 Resp 16 08/29/20 08:00 BP 118/76 08/29/20 08:00 Pulse Ox 97 08/29/20 08:00 Weight - Most Recent: 189 lb 8 oz I&O - Last 24 Hours: Intake & Output 08/28/20 08/29/20 08/29/20 22:59 06:59 14:59 Intake Total 120 Balance 120 Lab Results Last 24 Hours: Laboratory Results - last 24 hr 08/29/20 Range/Units 06:30 Sodium 143 (135-145) mmol/L Potassium 4.6 (3.5-5.3) mmol/L Chloride 108 (100-110) mmol/L Carbon Dioxide 27 (21-32) mmol/L BUN 5 L (7-18) mg/dL Creatinine 0.5 L (0.70-1.30) mg/dL Est Cr Clr Drug Dosing 170.29 mL/min Estimated GFR (MDRD) > 60 (>60) BUN/Creatinine Ratio 10.0 (9-20) Glucose 96 (80-116) mg/dL Calcium 7.5 L (8.6-10.2) mg/dL Magnesium 1.7 L (1.8-2.5) mg/dL Albumin 2.1 L (3.2-4.6) g/dL Med Orders - Current: Current Medications Acetaminophen (Acetaminophen 650 Mg Tab.Er) 650 mg PO Q8H PRN PRN Reason: Pain Amitriptyline HCl (Amitriptyline 25 Mg Tab) 75 mg PO BEDTIME [facility] Last Admin: 08/28/20 20:58 Dose: 75 mg Documented by: Apixaban (Apixaban 5 Mg Tab) 5 mg PO BID [facility] Last Admin: 08/29/20 08:21 Dose: 5 mg Documented by: Calcium Carbonate/Glycine (Calcium Carbonate 500 Mg Tab.Chew) 500 mg PO Q4H PRN PRN Reason: HEARTBURN Citalopram Hydrobromide (Citalopram 20 Mg Tab) 40 mg PO DAILY [facility] Last Admin: 08/29/20 08:21 Dose: 40 mg Documented by: Al Hydroxide/Mg Hydroxide 30 ml/ Lidocaine HCl 30 ml/Diphenhydramine HCl 75 mg 0 ml PO Q2H PRN PRN Reason: MOUTH PAIN Dexamethasone (Dexamethasone 4 Mg Tab) 4 mg PO DAILY [facility] Last Admin: 08/29/20 08:21 Dose: 4 mg Documented by: Heparin Sodium (Porcine) (Heparin Sodium 100 Units/Ml 5 Ml Syringe) 500 units FLUSH ASDIRECTED PRN PRN Reason: Portacath flush Last Admin: 08/25/20 12:47 Dose: 500 units Documented by: Loperamide HCl (Loperamide 2 Mg Cap) 2 mg PO ASDIRECTED PRN PRN Reason: DIARRHEA Last Admin: 08/27/20 20:26 Dose: 2 mg Documented by: Magnesium Oxide (Magnesium Oxide 400 Mg Tab) 400 mg PO BEDTIME [facility] Melatonin (Melatonin 3 Mg Tab) 6 mg PO BEDTIME [facility] Last Admin: 08/28/20 20:58 Dose: 6 mg Documented by: Metoclopramide HCl (Metoclopramide 5 Mg Tab) 5 mg PO Q6H PRN PRN Reason: Nausea/Vomiting Morphine Sulfate (Morphine 15 Mg Tab) 15 mg PO Q4H PRN PRN Reason: severe Pain Last Admin: 08/26/20 01:49 Dose: 15 mg Documented by: Pantoprazole Sodium (Pantoprazole 40 Mg Tab.Cr) 40 mg PO ACBREAKFAST [facility] Last Admin: 08/29/20 06:32 Dose: 40 mg Documented by: Simvastatin (Simvastatin 10 Mg Tab) 10 mg PO BEDTIME [facility] Last Admin: 08/28/20 20:58 Dose: 10 mg Documented by: Sodium Chloride (Sodium Chloride 0.9% 10 Ml Syringe) 10 ml FLUSH ASDIRECTED PRN PRN Reason: Keep Vein Open Last Admin: 08/26/20 08:42 Dose: 10 ml Documented by: Discontinued Medications Acetaminophen (Acetaminophen 650 Mg Tab.Er) 650 mg PO Q4H PRN PRN Reason: Pain Acetaminophen/Diphenhydramine HCl (Acetaminophen/Diphenhydramine 500-25 Mg Tab) 1 tab PO BEDTIME [facility] Last Admin: 08/26/20 20:25 Dose: 1 tab Documented by: Calcium Carbonate/Glycine (Calcium Carbonate 500 Mg Tablet) 1,500 mg PO BIDMEALS [facility] Last Admin: 08/28/20 08:55 Dose: Not Given Documented by: Al Hydroxide/Mg Hydroxide 30 ml/ Lidocaine HCl 30 ml/Diphenhydramine HCl 75 mg 0 ml PO Q4H PRN PRN Reason: MOUTH PAIN Last Admin: 08/28/20 15:40 Dose: 15 ml Documented by: Diatrizoate Meglum/Diatrizoate Sod (Diatrizoate Meglumine/Diatrizoate Sodium 37% 30 Ml Bottle) 30 ml PO ASDIRECTED ONE Stop: 08/25/20 16:24 Last Admin: 08/25/20 18:26 Dose: 30 ml Documented by: Magnesium Sulfate 4 gm/ Premix 50 mls @ 12.5 mls/hr IV ONETIME ONE Stop: 08/24/20 15:09 Last Admin: 08/24/20 11:29 Dose: 12.5 mls/hr Documented by: Sodium Chloride (Normal Saline) 1,000 mls @ 100 mls/hr IV ASDIRECTED [facility] Stop: 08/26/20 00:44 Last Admin: 08/25/20 01:11 Dose: 100 mls/hr Documented by: Iopamidol (Iopamidol 755 Mg/Ml 100 Ml Bottle) 100 ml IV . DIRECTED ONE Stop: 08/25/20 16:24 Last Admin: 08/25/20 18:26 Dose: 95 ml Documented by: Loperamide HCl (Loperamide 2 Mg Cap) 4 mg PO ONETIME ONE Stop: 08/24/20 20:28 Last Admin: 08/24/20 20:57 Dose: 4 mg Documented by: Loperamide HCl (Loperamide 2 Mg Cap) 2 mg PO ASDIRECTED PRN PRN Reason: Diarrhea Last Admin: 08/26/20 01:49 Dose: 2 mg Documented by: Magnesium Oxide (Magnesium Oxide 400 Mg Tab) 400 mg PO BID [facility] Last Admin: 08/28/20 20:58 Dose: 400 mg Documented by: Melatonin (Melatonin 3 Mg Tab) 6 mg PO BEDTIME PRN PRN Reason: Insomnia Last Admin: 08/26/20 01:54 Dose: 6 mg Documented by: Potassium Chloride (Potassium Chloride 20 Meq Tab.Er) 40 meq PO ONETIME ONE Stop: 08/24/20 11:12 Last Admin: 08/24/20 11:29 Dose: 40 meq Documented by: Potassium Chloride (Potassium Chloride 20 Meq Tab.Er) 20 meq PO DAILY [facility] Last Admin: 08/28/20 08:50 Dose: 20 meq Documented by: - Exam General: Alert, Oriented, Cooperative HEENT: Other (Left anterior cervical LN improved) Lungs: Clear to Auscultation, Normal Respiratory Effort Cardiovascular: Regular Rate, Regular Rhythm GI/Abdominal Exam: Normal Bowel Sounds, Soft, Non-Tender, No Distention Peripheral Pulses: 2+: Radial (L), Radial (R) - Patient Data Lab Results Last 24 hrs: Laboratory Results - last 24 hr 08/29/20 Range/Units 06:30 Sodium 143 (135-145) mmol/L Potassium 4.6 (3.5-5.3) mmol/L Chloride 108 (100-110) mmol/L Carbon Dioxide 27 (21-32) mmol/L BUN 5 L (7-18) mg/dL Creatinine 0.5 L (0.70-1.30) mg/dL Est Cr Clr Drug Dosing 170.29 mL/min Estimated GFR (MDRD) > 60 (>60) BUN/Creatinine Ratio 10.0 (9-20) Glucose 96 (80-116) mg/dL Calcium 7.5 L (8.6-10.2) mg/dL Magnesium 1.7 L (1.8-2.5) mg/dL Albumin 2.1 L (3.2-4.6) g/dL Result Diagrams: 08/26/20 06:20 08/29/20 06:30 Sepsis Event Note - Evaluation Sepsis Screening Result: No Definite Risk - Focused Exam Vital Signs: Vital Signs Temp Pulse Resp BP Pulse Ox 08/29/20 08:00 98.1 F 86 16 118/76 97 - Problem List & Annotations (1) Hypomagnesemia SNOMED Code(s): 892322242 Code(s): E83.42 - HYPOMAGNESEMIA Status: Acute Current Visit: Yes Annotation/Comment:: Improved to 1.7. Decrease dose to 400 mg at bedtime. (2) Weakness SNOMED Code(s): 38064818 Code(s): R53.1 - WEAKNESS Status: Acute Current Visit: Yes (3) Recurrent falls SNOMED Code(s): 306529633 Code(s): R29.6 - REPEATED FALLS Status: Acute Current Visit: Yes (4) Thrombocytopenia SNOMED Code(s): 940157043 Code(s): D69.6 - THROMBOCYTOPENIA, UNSPECIFIED Status: Acute Current Visit: Yes Annotation/Comment:: stable (5) Anemia SNOMED Code(s): 650013558 Code(s): D64.9 - ANEMIA, UNSPECIFIED Status: Acute Current Visit: Yes Qualifiers: Other causes of anemia: nutritional, unspecified Annotation/Comment:: stable (6) Bile duct cancer SNOMED Code(s): 475210657 Code(s): C24.0 - MALIGNANT NEOPLASM OF EXTRAHEPATIC BILE DUCT Status: Chronic Current Visit: Yes Onset Date: ~2018 (7) Metastasis SNOMED Code(s): 933748089 Code(s): C79.9 - SECONDARY MALIGNANT NEOPLASM OF UNSPECIFIED SITE Status: Chronic Current Visit: Yes Qualifiers: Area of secondary neoplastic involvement: bone Qualified Code(s): C79.51 - Secondary malignant neoplasm of bone Annotation/Comment:: ribs/back, liver (8) Mild neurocognitive disorder SNOMED Code(s): 120703997 Code(s): G31.84 - MILD COGNITIVE IMPAIRMENT, SO STATED Status: Acute Current Visit: Yes Annotation/Comment:: MOCA 02/05 vs MME . His sister Ladan is power of claim attorney. (9) Protein calorie malnutrition SNOMED Code(s): 540256372 Code(s): E46 - UNSPECIFIED PROTEIN-CALORIE MALNUTRITION Status: Acute Current Visit: Yes Qualifiers: Protein-calorie malnutrition severity: moderate Qualified Code(s): E44.0 - Moderate protein-calorie malnutrition Annotation/Comment:: Albumin 2.1. (10) Hypokalemia SNOMED Code(s): 70669914 Code(s): E87.6 - HYPOKALEMIA Status: Resolved Current Visit: Yes Annotation/Comment:: K 4.6, discontinue potassium supplements. (11) Palliative care status SNOMED Code(s): 981435448 Code(s): Z51.5 - ENCOUNTER FOR PALLIATIVE CARE Status: Chronic Current Visit: Yes (12) Bilateral pleural effusion SNOMED Code(s): 124364859 Code(s): J90 - PLEURAL EFFUSION, NOT ELSEWHERE CLASSIFIED Status: Acute Current Visit: Yes (13) Abdominal ascites SNOMED Code(s): 883397982 Code(s): R18.8 - OTHER ASCITES Status: Acute Current Visit: Yes Qualifiers: Ascites type: malignant Qualified Code(s): R18.0 - Malignant ascites (14) Neuropathy associated with cancer SNOMED Code(s): 470684713 Code(s): C80.1 - MALIGNANT (PRIMARY) NEOPLASM, UNSPECIFIED; G63 - POLYNEUROPATHY IN DISEASES CLASSIFIED ELSEWHERE Status: Acute Current Visit: Yes - Problem List Review Problem List Initiated/Reviewed/Updated: Yes - My Orders Last 24 Hours: My Active Orders 08/29/20 14:00 Alum Hydroxide/Mag Hydroxide [Mag-Al Susp] 30 ml Lidocaine 2% [Xylocaine 2% Viscous] 30 ml diphenhydrAMINE [Benadryl] 75 mg PO Q2H 08/29/20 21:00 Magnesium Oxide 400 mg PO BEDTIME - Plan Plan:: 1. Falls/generalized weakness/neuropathy: PT/OT. 2. Hypomagnesemia/hypokalemia: Magnesium 400 mg at bedtime. 3. Dry mouth: Magic mouthwash swish & spit q2h as needed, Caio-stir as needed. May need to decrease Amitriptyline if not improved with mouthwash and Caio-Stir spray. 4. 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 He has progressively been declining. Will be going to [facility] on Tuesday. 5. Protein calorie malnutrition: Albumin 2.1. Dexamethasone 4 mg daily. 6. Neurocognitive deficits: MOCA screen 02/05, his sister is POA for him. Poor insight into his mental state. 7. Discharge: Accepted at [facility] for TuesdaySeptember 02 at 10 am. Has had Covid vaccination and recent chest x-ray, will not need Covid or TB testing pr ior to discharge.
[2020-08-29] MEDS: Magnesium Oxide 400 MG Tab PO SCH (20:27)
[2020-08-29] MEDS: Melatonin 3 MG Tab PO SCH (20:27)
[2020-08-29] MEDS: Simvastatin 10 MG Tab PO SCH (20:28)
[2020-08-29] MEDS: Amitriptyline 25 MG Tab PO SCH (20:28)
[2020-08-30] MEDS: Morphine 15 MG Tab PO PRN ×3 (06:26→21:31)
[2020-08-30] MEDS: Pantoprazole 40 MG Tab.CR PO SCH (06:34)
[2020-08-30] MEDS: Dexamethasone 4 MG Tab PO SCH (08:13)
[2020-08-30] MEDS: Citalopram 20 MG Tab PO SCH (08:13)
[2020-08-30] MEDS: Apixaban 5 MG Tab PO SCH ×2 (08:13→20:50)
[2020-08-30] MEDS ORDERED: Dexamethasone 4 MG/ML SDV IVPUSH ONE ×2 (08:32→09:15)
[2020-08-30] MEDS ORDERED: HYDROmorphone 2 MG/ML SDV IVPUSH ONE (08:33)
--- NOTE | 2020-08-30 08:47 | PCM.PN ---
- General Info Date of Service: 08/30/20 Subjective Update: Ari's pain in his left jaw has worsened, swelling has increased to involve parotid gland but no swelling around his teeth on the left. Received Morphine 15 mg this morning but did not touch the pain. No nausea, vomiting. No fevers or redness over the area. - Patient Data Vitals - Most Recent: Last Vital Signs Temp 98.8 F 08/30/20 07:24 Pulse 114 H 08/30/20 07:24 Resp 16 08/30/20 07:24 BP 141/96 H 08/30/20 07:24 Pulse Ox 95 08/30/20 07:24 Weight - Most Recent: 189 lb 8 oz Med Orders - Current: Current Medications Acetaminophen (Acetaminophen 650 Mg Tab.Er) 650 mg PO Q8H PRN PRN Reason: Pain Amitriptyline HCl (Amitriptyline 25 Mg Tab) 50 mg PO BEDTIME DENEEN Apixaban (Apixaban 5 Mg Tab) 5 mg PO BID DENEEN Last Admin: 08/30/20 08:13 Dose: 5 mg Documented by: Calcium Carbonate/Glycine (Calcium Carbonate 500 Mg Tab.Chew) 500 mg PO Q4H PRN PRN Reason: HEARTBURN Citalopram Hydrobromide (Citalopram 20 Mg Tab) 40 mg PO DAILY DENEEN Last Admin: 08/30/20 08:13 Dose: 40 mg Documented by: Al Hydroxide/Mg Hydroxide 30 ml/ Lidocaine HCl 30 ml/Diphenhydramine HCl 75 mg 0 ml PO Q2H PRN PRN Reason: MOUTH PAIN Last Admin: 08/29/20 15:38 Dose: 15 ml Documented by: Heparin Sodium (Porcine) (Heparin Sodium 100 Units/Ml 5 Ml Syringe) 500 units FLUSH ASDIRECTED PRN PRN Reason: Portacath flush Last Admin: 08/25/20 12:47 Dose: 500 units Documented by: Doxycycline Hyclate 100 mg/ (Sodium Chloride) 100 mls @ 100 mls/hr IV Q12H DENEEN Loperamide HCl (Loperamide 2 Mg Cap) 2 mg PO ASDIRECTED PRN PRN Reason: DIARRHEA Last Admin: 08/27/20 20:26 Dose: 2 mg Documented by: Magnesium Oxide (Magnesium Oxide 400 Mg Tab) 400 mg PO BEDTIME DENEEN Last Admin: 08/29/20 20:27 Dose: 400 mg Documented by: Melatonin (Melatonin 3 Mg Tab) 6 mg PO BEDTIME [facility] Last Admin: 08/29/20 20:27 Dose: 6 mg Documented by: Metoclopramide HCl (Metoclopramide 5 Mg Tab) 5 mg PO Q6H PRN PRN Reason: Nausea/Vomiting Morphine Sulfate (Morphine 15 Mg Tab) 15 mg PO Q4H PRN PRN Reason: severe Pain Last Admin: 08/30/20 06:26 Dose: 15 mg Documented by: Pantoprazole Sodium (Pantoprazole 40 Mg Tab.Cr) 40 mg PO ACBREAKFAST [facility] Last Admin: 08/30/20 06:34 Dose: 40 mg Documented by: Simvastatin (Simvastatin 10 Mg Tab) 10 mg PO BEDTIME [facility] Last Admin: 08/29/20 20:28 Dose: 10 mg Documented by: Discontinued Medications Acetaminophen (Acetaminophen 650 Mg Tab.Er) 650 mg PO Q4H PRN PRN Reason: Pain Acetaminophen/Diphenhydramine HCl (Acetaminophen/Diphenhydramine 500-25 Mg Tab) 1 tab PO BEDTIME [facility] Last Admin: 08/26/20 20:25 Dose: 1 tab Documented by: Amitriptyline HCl (Amitriptyline 25 Mg Tab) 75 mg PO BEDTIME [facility] Last Admin: 08/29/20 20:28 Dose: 75 mg Documented by: Azithromycin (Azithromycin 250 Mg Tab) 250 mg PO DAILY DENEEN Stop: 09/02/20 09:01 Calcium Carbonate/Glycine (Calcium Carbonate 500 Mg Tablet) 1,500 mg PO BIDMEALS [facility] Last Admin: 08/28/20 08:55 Dose: Not Given Documented by: Al Hydroxide/Mg Hydroxide 30 ml/ Lidocaine HCl 30 ml/Diphenhydramine HCl 75 mg 0 ml PO Q4H PRN PRN Reason: MOUTH PAIN Last Admin: 08/28/20 15:40 Dose: 15 ml Documented by: Dexamethasone (Dexamethasone 4 Mg Tab) 4 mg PO DAILY [facility] Last Admin: 08/30/20 08:13 Dose: 4 mg Documented by: Dexamethasone (Dexamethasone 4 Mg/Ml Sdv) 10 mg IVPUSH ONETIME ONE Stop: 08/30/20 08:33 Diatrizoate Meglum/Diatrizoate Sod (Diatrizoate Meglumine/Diatrizoate Sodium 37% 30 Ml Bottle) 30 ml PO ASDIRECTED ONE Stop: 08/25/20 16:24 Last Admin: 08/25/20 18:26 Dose: 30 ml Documented by: Hydromorphone HCl (Hydromorphone 2 Mg/Ml Sdv) 2 mg IVPUSH ONETIME ONE Stop: 08/30/20 08:34 Magnesium Sulfate 4 gm/ Premix 50 mls @ 12.5 mls/hr IV ONETIME ONE Stop: 08/24/20 15:09 Last Admin: 08/24/20 11:29 Dose: 12.5 mls/hr Documented by: Sodium Chloride (Normal Saline) 1,000 mls @ 100 mls/hr IV ASDIRECTED DENEEN Stop: 08/26/20 00:44 Last Admin: 08/25/20 01:11 Dose: 100 mls/hr Documented by: Iopamidol (Iopamidol 755 Mg/Ml 100 Ml Bottle) 100 ml IV . DIRECTED ONE Stop: 08/25/20 16:24 Last Admin: 08/25/20 18:26 Dose: 95 ml Documented by: Loperamide HCl (Loperamide 2 Mg Cap) 4 mg PO ONETIME ONE Stop: 08/24/20 20:28 Last Admin: 08/24/20 20:57 Dose: 4 mg Documented by: Loperamide HCl (Loperamide 2 Mg Cap) 2 mg PO ASDIRECTED PRN PRN Reason: Diarrhea Last Admin: 08/26/20 01:49 Dose: 2 mg Documented by: Magnesium Oxide (Magnesium Oxide 400 Mg Tab) 400 mg PO BID [facility] Last Admin: 08/28/20 20:58 Dose: 400 mg Documented by: Melatonin (Melatonin 3 Mg Tab) 6 mg PO BEDTIME PRN PRN Reason: Insomnia Last Admin: 08/26/20 01:54 Dose: 6 mg Documented by: Potassium Chloride (Potassium Chloride 20 Meq Tab.Er) 40 meq PO ONETIME ONE Stop: 08/24/20 11:12 Last Admin: 08/24/20 11:29 Dose: 40 meq Documented by: Potassium Chloride (Potassium Chloride 20 Meq Tab.Er) 20 meq PO DAILY [facility] Last Admin: 08/28/20 08:50 Dose: 20 meq Documented by: Sodium Chloride (Sodium Chloride 0.9% 10 Ml Syringe) 10 ml FLUSH ASDIRECTED PRN PRN Reason: Keep Vein Open Last Admin: 08/26/20 08:42 Dose: 10 ml Documented by: - Exam HEENT: Mucous Membr. Moist/[place] (No swelling around left upper or lower teeth, no erythema), Other (Moderate swelling over left parotid extends past jaw and proximal lateral neck, unable to feel anterior cervical chain) Lungs: Clear to Auscultation, Normal Respiratory Effort Cardiovascular: Regular Rate, Regular Rhythm GI/Abdominal Exam: Normal Bowel Sounds, Soft, Non-Tender, No Distention Extremities: No Pedal Edema Peripheral Pulses: 2+: Radial (L), Radial (R) - Patient Data Result Diagrams: 08/26/20 06:20 08/29/20 06:30 Sepsis Event Note - Evaluation Sepsis Screening Result: No Definite Risk - Focused Exam Vital Signs: Vital Signs Temp Temp Pulse Resp BP Pulse Ox 08/30/20 07:24 98.8 F 114 H 16 141/96 H 95 08/30/20 00:00 98.8 F 94 20 135/90 95 - Problem List & Annotations (1) Localized soft tissue swelling SNOMED Code(s): 928238148 Code(s): R22.9 - LOCALIZED SWELLING, MASS AND LUMP, UNSPECIFIED Status: Acute Current Visit: Yes Annotation/Comment:: left parotid/jaw/proximal lateral neck. (2) Hypomagnesemia SNOMED Code(s): 765063369 Code(s): E83.42 - HYPOMAGNESEMIA Status: Acute Current Visit: Yes Annot ation/Comment:: Improved to 1.7. Decrease dose to 400 mg at bedtime. (3) Weakness SNOMED Code(s): 34198191 Code(s): R53.1 - WEAKNESS Status: Acute Current Visit: Yes (4) Recurrent falls SNOMED Code(s): 080099528 Code(s): R29.6 - REPEATED FALLS Status: Acute Current Visit: Yes (5) Thrombocytopenia SNOMED Code(s): 377181528 Code(s): D69.6 - THROMBOCYTOPENIA, UNSPECIFIED Status: Acute Current Visit: Yes Annotation/Comment:: stable (6) Anemia SNOMED Code(s): 183079840 Code(s): D64.9 - ANEMIA, UNSPECIFIED Status: Acute Current Visit: Yes Qualifiers: Other causes of anemia: nutritional, unspecified Annotation/Comment:: stable (7) Bile duct cancer SNOMED Code(s): 579176536 Code(s): C24.0 - MALIGNANT NEOPLASM OF EXTRAHEPATIC BILE DUCT Status: Chronic Current Visit: Yes Onset Date: ~2018 (8) Metastasis SNOMED Code(s): 933885236 Code(s): C79.9 - SECONDARY MALIGNANT NEOPLASM OF UNSPECIFIED SITE Status: Chronic Current Visit: Yes Qualifiers: Area of secondary neoplastic involvement: bone Qualified Code(s): C79.51 - Secondary malignant neoplasm of bone Annotation/Comment:: ribs/back, liver (9) Mild neurocognitive disorder SNOMED Code(s): 807780447 Code(s): G31.84 - MILD COGNITIVE IMPAIRMENT, SO STATED Status: Acute Current Visit: Yes Annotation/Comment:: MOCA 02/05 vs MME . His sister Ladan is power of divorce attorney. (10) Protein calorie malnutrition SNOMED Code(s): 563380742 Code(s): E46 - UNSPECIFIED PROTEIN-CALORIE MALNUTRITION Status: Acute Current Visit: Yes Qualifiers: Protein-calorie malnutrition severity: moderate Qualified Code(s): E44.0 - Moderate protein-calorie malnutrition Annotation/Comment:: Albumin 2.1. (11) Hypokalemia SNOMED Code(s): 89304879 Code(s): E87.6 - HYPOKALEMIA Status: Resolved Current Visit: Yes Vianey otation/Comment:: K 4.6, discontinue potassium supplements. 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 SNOMED Code(s): 147625701 Code(s): C80.1 - MALIGNANT (PRIMARY) NEOPLASM, UNSPECIFIED; G63 - POLYNEUROPATHY IN DISEASES CLASSIFIED ELSEWHERE Status: Acute Current Visit: Yes - Problem List Review Problem List Initiated/Reviewed/Updated: Yes - My Orders Last 24 Hours: My Active Orders 07/23/21 14:00 Alum Hydroxide/Mag Hydroxide [Mag-Al Susp] 30 ml Lidocaine 2% [Xylocaine 2% Viscous] 30 ml diphenhydrAMINE [Benadryl] 75 mg PO Q2H 08/29/20 14:30 Discontinue Saline Lock [Peripheral IV Discontinue] [OM.PC] Routine 08/29/20 21:00 Magnesium Oxide 400 mg PO BEDTIME 08/30/20 08:30 Soft Tissue Neck w Cont [CT] Routine Doxycycline [Vibramycin] 100 mg Sodium Chloride 0.9% [Normal Saline] 100 ml IV Q12H 08/30/20 08:31 BASIC METABOLIC PANEL,BMP [CHEM] Routine CBC WITH AUTO DIFF [HEME] Routine 08/30/20 21:00 Amitriptyline [Elavil] 50 mg PO BEDTIME - Plan Plan:: 1. Left soft tissue swelling: CT soft tissue neck with contrast to rule out abscess or parotid gland stones causing obstruction. Dilaudid 2 mg IV x 1, D examethasone 10 mg IV x 1 to help get swelling down. Will adjust pain medications as needed. 2. Hypomagnesemia/hypokalemia: Magnesium 400 mg at bedtime. 3. Dry mouth: Magic mouthwash swish & spit q2h as needed, Caio-stir as needed. May need to decrease Amitriptyline if not improved with mouthwash and Caio-Stir spray. 4. 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 He has progressively been declining. Will be going to [facility] on Tuesday. 5. Protein calorie malnutrition: Albumin 2.1. Dexamethasone 4 mg daily. 6. Neurocognitive deficits: MOCA screen 02/05, his sister is POA for him. Poor insight into his mental state. 7. Discharge: Accepted at [facility] for TuesdaySeptember 02 at 10 am. Has had Covid vaccination and recent chest x-ray, will not need Covid or TB testing prior to discharge.
[2020-08-30] MEDS: Sodium Chloride 0.9% 10 ML Syringe FLUSH PRN ×6 (08:49→21:41)
[2020-08-30] MEDS ORDERED: Iopamidol 755 Mg/ML 75 ML Bottle IV ONE (08:51)
[2020-08-30] MEDS ORDERED: Azithromycin 250 MG Tab PO SCH (09:00)
[2020-08-30] MEDS ORDERED: Naloxone 0.4 MG/ML SDV IVPUSH PRN ×2 (10:15→17:46)
[2020-08-30] MEDS: Doxycycline 100 MG in Sodium Chloride 0.9% 100 ML IV SCH ×2 (10:26→21:27)
[2020-08-30] MEDS ORDERED: Meropenem 1 GM SDV IVPUSH SCH (11:00)
[2020-08-30] MEDS: Amitriptyline 25 MG Tab PO SCH (20:50)
[2020-08-30] MEDS: Simvastatin 10 MG Tab PO SCH (20:50)
[2020-08-30] MEDS: Melatonin 3 MG Tab PO SCH (20:51)
[2020-08-30] MEDS: Magnesium Oxide 400 MG Tab PO SCH (20:51)
[2020-08-30] MEDS: Meropenem 1 GM SDV IVPUSH SCH (21:24)
[2020-08-31] MEDS: Pantoprazole 40 MG Tab.CR PO SCH (06:33)
[2020-08-31] MEDS: Meropenem 1 GM SDV IVPUSH SCH ×3 (06:34→21:17)
[2020-08-31] MEDS: Sodium Chloride 0.9% 10 ML Syringe FLUSH PRN ×3 (06:39→22:27)
--- NOTE | 2020-08-31 08:06 | PCM.PN ---
- General Info Date of Service: 08/31/20 Subjective Update: Ari had CT neck yesterday which showed parotitis without stone in duct. He has had dry mouth, poor oral care. Decreased Amitriptyline last night and he stated his mouth felt better today. He was able to eat some pudding and was not so sore. He slept all day yesterday after receiving Dilaudid for his jaw pain, had been given 15 mg of Morphine which didn't touch pain. He slept through lunch and dinner, gave Narcan around 1745 and patient woke up, disoriented but more alert. Slept all night, feels much better today. He did not have any Tylenol or Morphine today, they can alternate this if needed. Denies any allergies to penicillins or doxycycline. No rash but some itching of his upper arms this morning. His nurse stated it was not after any medication administration that she noticed it. Functional Status: Reports: Pain Controlled, Tolerating Diet - Patient Data Vitals - Most Recent: Last Vital Signs Temp 98.1 F 08/31/20 00:00 Pulse 101 H 08/31/20 00:00 Resp 20 08/31/20 00:00 BP 125/82 08/31/20 00:00 Pulse Ox 92 L 08/31/20 00:00 Weight - Most Recent: 189 lb 8 oz Lab Results Last 24 Hours: Laboratory Results - last 24 hr 08/30/20 08/30/20 08/31/20 Range/Units 09:10 09:10 06:10 WBC 14.0 H 14.2 H (3.2-10.1) x10-3/uL RBC 2.50 L 2.33 L (3.90-5.90) x10(6)uL Hgb 9.4 L 8.9 L (12.9-17.7) g/dL Hct 27.8 L 26.7 L (38.3-50.1) % MCV 111.4 H 114.8 H (80.8-98.7) fL MCH 37.6 H 38.3 H (27.0-33.3) pg MCHC 33.8 33.4 (28.7-35.3) g/dL RDW 18.2 H 18.3 H (12.4-15.0) % Plt Count 191 145 (117-477) x10(3)uL MPV 6.5 L 6.4 L (6.7-11.0) fL Neut % (Auto) 85.8 H (40.3-71.8) % Lymph % (Auto) 7.6 L (15.8-45.3) % [place] % (Auto) 6.3 (5.5-15.2) % Eos % (Auto) 0.1 (0.1-6.8) % Baso % (Auto) 0.2 L (0.3-3.8) % Neut # (Auto) 12.0 H (1.7-6.9) x10-3/uL Lymph # (Auto) 1.1 (0.5-4.5) x10-3/uL [place] # (Auto) 0.9 (0.0-1.2) x10-3/uL Eos # (Auto) 0.0 (0.0-0.6) x10-3/uL Baso # (Auto) 0.0 (0.0-0.3) x10-3/uL Add Manual Diff Yes Neutrophils % (Manual) 93 H (46-82) % Lymphocytes % (Manual) 5 L (13-37) % Monocytes % (Manual) 1 L (4-12) % Myelocytes % 1 H (0-0) % Hypersegmented Neuts Few Sodium 138 (135-145) mmol/L Potassium 4.1 (3.5-5.3) mmol/L Chloride 102 D (100-110) mmol/L Carbon Dioxide 26 (21-32) mmol/L BUN 11 (7-18) mg/dL Creatinine 0.7 (0.70-1.30) mg/dL Est Cr Clr Drug Dosing 121.63 mL/min Estimated GFR (MDRD) > 60 (>60) BUN/Creatinine Ratio 15.7 (9-20) Glucose 93 (80-116) mg/dL Calcium 8.4 L (8.6-10.2) mg/dL 08/31/ Range/Units 06:10 WBC (3.2-10.1) x10-3/uL RBC (3.90-5.90) x10(6)uL Hgb (12.9-17.7) g/dL Hct (38.3-50.1) % MCV (80.8-98.7) fL MCH (27.0-33.3) pg MCHC (28.7-35.3) g/dL RDW (12.4-15.0) % Plt Count (117-477) x10(3)uL MPV (6.7-11.0) fL Neut % (Auto) (40.3-71.8) % Lymph % (Auto) (15.8-45.3) % [place] % (Auto) (5.5-15.2) % Eos % (Auto) (0.1-6.8) % Baso % (Auto) (0.3-3.8) % Neut # (Auto) (1.7-6.9) x10-3/uL Lymph # (Auto) (0.5-4.5) x10-3/uL [place] # (Auto) (0.0-1.2) x10-3/uL Eos # (Auto) (0.0-0.6) x10-3/uL Baso # (Auto) (0.0-0.3) x10-3/uL Add Manual Diff Neutrophils % (Manual) (46-82) % Lymphocytes % (Manual) (13-37) % Monocytes % (Manual) (4-12) % Myelocytes % (0-0) % Hypersegmented Neuts Sodium 140 (135-145) mmol/L Potassium 4.4 (3.5-5.3) mmol/L Chloride 103 (100-110) mmol/L Carbon Dioxide 31 (21-32) mmol/L BUN 13 (7-18) mg/dL Creatinine 0.8 (0.70-1.30) mg/dL Est Cr Clr Drug Dosing 106.43 mL/min Estimated GFR (MDRD) > 60 (>60) BUN/Creatinine Ratio 16.3 (9-20) Glucose 98 (80-116) mg/dL Calcium 8.0 L (8.6-10.2) mg/dL Med Orders - Current: Current Medications Acetaminophen (Acetaminophen 650 Mg Tab.Er) 650 mg PO Q8H PRN PRN Reason: Pain Amitriptyline HCl (Amitriptyline 25 Mg Tab) 50 mg PO BEDTIME DENEEN Last Admin: 08/30/20 20:50 Dose: 50 mg Documented by: Apixaban (Apixaban 5 Mg Tab) 5 mg PO BID [facility] Last Admin: 08/30/20 20:50 Dose: 5 mg Documented by: Calcium Carbonate/Glycine (Calcium Carbonate 500 Mg Tab.Chew) 500 mg PO Q4H PRN PRN Reason: HEARTBURN Citalopram Hydrobromide (Citalopram 20 Mg Tab) 40 mg PO DAILY [facility] Last Admin: 08/30/20 08:13 Dose: 40 mg Documented by: Al Hydroxide/Mg Hydroxide 30 ml/ Lidocaine HCl 30 ml/Diphenhydramine HCl 75 mg 0 ml PO Q2H PRN PRN Reason: MOUTH PAIN Last Admin: 08/29/20 15:38 Dose: 15 ml Documented by: Heparin Sodium (Porcine) (Heparin Sodium 100 Units/Ml 5 Ml Syringe) 500 units FLUSH ASDIRECTED PRN PRN Reason: Portacath flush Last Admin: 08/25/20 12:47 Dose: 500 units Documented by: Doxycycline Hyclate 100 mg/ (Sodium Chloride) 100 mls @ 100 mls/hr IV Q12H DENEEN Last Admin: 08/30/20 21:27 Dose: 100 mls/hr Documented by: Loperamide HCl (Loperamide 2 Mg Cap) 2 mg PO ASDIRECTED PRN PRN Reason: DIARRHEA Last Admin: 08/27/20 20:26 Dose: 2 mg Documented by: Magnesium Oxide (Magnesium Oxide 400 Mg Tab) 400 mg PO BEDTIME DENEEN Last Admin: 08/30/20 20:51 Dose: 400 mg Documented by: Melatonin (Melatonin 3 Mg Tab) 6 mg PO BEDTIME [facility] Last Admin: 08/30/20 20:51 Dose: 6 mg Documented by: Meropenem (Meropenem 1 Gm Sdv) 1 gm IVPUSH Q8H DENEEN Last Admin: 08/31/20 06:34 Dose: 1 gm Documented by: Metoclopramide HCl (Metoclopramide 5 Mg Tab) 5 mg PO Q6H PRN PRN Reason: Nausea/Vomiting Morphine Sulfate (Morphine 15 Mg Tab) 15 mg PO Q4H PRN PRN Reason: severe Pain Last Admin: 08/30/20 21:31 Dose: 15 mg Documented by: Pantoprazole Sodium (Pantoprazole 40 Mg Tab.Cr) 40 mg PO ACBREAKFAST [facility] Last Admin: 08/31/20 06:33 Dose: 40 mg Documented by: Simvastatin (Simvastatin 10 Mg Tab) 10 mg PO BEDTIME DENEEN Last Admin: 08/30/20 20:50 Dose: 10 mg Documented by: Sodium Chloride (Sodium Chloride 0.9% 10 Ml Syringe) 10 ml FLUSH ASDIRECTED PRN PRN Reason: IV Use Last Admin: 08/31/20 06:39 Dose: 10 ml Documented by: Triamcinolone Acetonide (Triamcinolone Acetonide 0.1% Crm 15 Gm Tube) 0 gm TOP BID DENEEN Stop: 09/07/20 09:01 Discontinued Medications Acetaminophen (Acetaminophen 650 Mg Tab.Er) 650 mg PO Q4H PRN PRN Reason: Pain Acetaminophen/Diphenhydramine HCl (Acetaminophen/Diphenhydramine 500-25 Mg Tab) 1 tab PO BEDTIME [facility] Last Admin: 08/26/20 20:25 Dose: 1 tab Documented by: Amitriptyline HCl (Amitriptyline 25 Mg Tab) 75 mg PO BEDTIME [facility] Last Admin: 08/29/20 20:28 Dose: 75 mg Documented by: Azithromycin (Azithromycin 250 Mg Tab) 250 mg PO DAILY DENEEN Stop: 09/02/20 09:01 Calcium Carbonate/Glycine (Calcium Carbonate 500 Mg Tablet) 1,500 mg PO BIDMEALS [facility] Last Admin: 08/28/20 08:55 Dose: Not Given Documented by: Al Hydroxide/Mg Hydroxide 30 ml/ Lidocaine HCl 30 ml/Diphenhydramine HCl 75 mg 0 ml PO Q4H PRN PRN Reason: MOUTH PAIN Last Admin: 08/28/20 15:40 Dose: 15 ml Documented by: Dexamethasone (Dexamethasone 4 Mg Tab) 4 mg PO DAILY [facility] Last Admin: 08/30/20 08:13 Dose: 4 mg Documented by: Dexamethasone (Dexamethasone 4 Mg/Ml Sdv) 10 mg IVPUSH ONETIME ONE Stop: 08/30/20 08:33 Last Admin: 08/30/20 09:19 Dose: Not Given Documented by: Dexamethasone (Dexamethasone 4 Mg/Ml Sdv) 6 mg IVPUSH ONETIME ONE Stop: 08/30/20 09:16 Last Admin: 08/30/20 10:02 Dose: 6 mg Documented by: Diatrizoate Meglum/Diatrizoate Sod (Diatrizoate Meglumine/Diatrizoate Sodium 37% 30 Ml Bottle) 30 ml PO ASDIRECTED ONE Stop: 08/25/20 16:24 Last Admin: 08/25/20 18:26 Dose: 30 ml Documented by: Hydromorphone HCl (Hydromorphone 2 Mg/Ml Sdv) 2 mg IVPUSH ONETIME ONE Stop: 08/30/20 08:34 Last Admin: 08/30/20 08:53 Dose: 2 mg Documented by: Magnesium Sulfate 4 gm/ Premix 50 mls @ 12.5 mls/hr IV ONETIME ONE Stop: 08/24/20 15:09 Last Admin: 08/24/20 11:29 Dose: 12.5 mls/hr Documented by: Sodium Chloride (Normal Saline) 1,000 mls @ 100 mls/hr IV ASDIRECTED DENEEN Stop: 08/26/20 00:44 Last Admin: 08/25/20 01:11 Dose: 100 mls/hr Documented by: Iopamidol (Iopamidol 755 Mg/Ml 100 Ml Bottle) 100 ml IV . DIRECTED ONE Stop: 08/25/20 16:24 Last Admin: 08/25/20 18:26 Dose: 95 ml Documented by: Iopamidol (Iopamidol 755 Mg/Ml 75 Ml Bottle) 75 ml IV ASDIRECTED ONE Stop: 08/30/20 08:52 Last Admin: 08/30/20 09:30 Dose: 75 ml Documented by: Loperamide HCl (Loperamide 2 Mg Cap) 4 mg PO ONETIME ONE Stop: 08/24/20 20:28 Last Admin: 08/24/20 20:57 Dose: 4 mg Documented by: Loperamide HCl (Loperamide 2 Mg Cap) 2 mg PO ASDIRECTED PRN PRN Reason: Diarrhea Last Admin: 08/26/20 01:49 Dose: 2 mg Documented by: Magnesium Oxide (Magnesium Oxide 400 Mg Tab) 400 mg PO BID DENEEN Last Admin: 08/28/20 20:58 Dose: 400 mg Documented by: Melatonin (Melatonin 3 Mg Tab) 6 mg PO BEDTIME PRN PRN Reason: Insomnia Last Admin: 08/26/20 01:54 Dose: 6 mg Documented by: Meropenem (Meropenem 1 Gm Sdv) 1 gm IVPUSH Q8H [facility] Last Admin: 08/30/20 12:59 Dose: 1 gm Documented by: Naloxone HCl (Naloxone 0.4 Mg/Ml Sdv) 0.1 mg IVPUSH ONETIME PRN PRN Reason: Oversedation Naloxone HCl (Naloxone 0.4 Mg/Ml Sdv) 0.4 mg IVPUSH ONETIME PRN PRN Reason: Oversedation Last Admin: 08/30/20 17:50 Dose: 0.4 mg Documented by: Potassium Chloride (Potassium Chloride 20 Meq Tab.Er) 40 meq PO ONETIME ONE Stop: 08/24/20 11:12 Last Admin: 08/24/20 11:29 Dose: 40 meq Documented by: Potassium Chloride (Potassium Chloride 20 Meq Tab.Er) 20 meq PO DAILY DENEEN Last Admin: 08/28/20 08:50 Dose: 20 meq Documented by: Sodium Chloride (Sodium Chloride 0.9% 10 Ml Syringe) 10 ml FLUSH ASDIRECTED PRN PRN Reason: Keep Vein Open Last Admin: 08/26/20 08:42 Dose: 10 ml Documented by: - Exam Central Line Total Time: General: Alert, Oriented, Cooperative, No Acute Distress HEENT: Other (Left parotitis, TTP, no overlying redness, swelling down slightly.) Neck: Trachea Midline Lungs: Clear to Auscultation, Normal Respiratory Effort Cardiovascular: Regular Rate, Regular Rhythm GI/Abdominal Exam: Normal Bowel Sounds, Soft, Non-Tender, No Distention (Male) Exam: Deferred Extremities: No Pedal Edema. No: Increased Warmth Peripheral Pulses: 2+: Radial (L), Radial (R) Skin: Warm, Dry (itching left upper arm, no rash noted), Ecchymosis (scattered throughout torso & upper extremities) - Patient Data Lab Results Last 24 hrs: Laboratory Results - last 24 hr 08/30/20 08/30/20 08/31/20 Range/Units 09:10 09:10 06:10 WBC 14.0 H 14.2 H (3.2-10.1) x10-3/uL RBC 2.50 L 2.33 L (3.90-5.90) x10(6)uL Hgb 9.4 L 8.9 L (12.9-17.7) g/dL Hct 27.8 L 26.7 L (38.3-50.1) % MCV 111.4 H 114.8 H (80.8-98.7) fL MCH 37.6 H 38.3 H (27.0-33.3) pg MCHC 33.8 33.4 (28.7-35.3) g/dL RDW 18.2 H 18.3 H (12.4-15.0) % Plt Count 191 145 (117-477) x10(3)uL MPV 6.5 L 6.4 L (6.7-11.0) fL Neut % (Auto) 85.8 H (40.3-71.8) % Lymph % (Auto) 7.6 L (15.8-45.3) % [place] % (Auto) 6.3 (5.5-15.2) % Eos % (Auto) 0.1 (0.1-6.8) % Baso % (Auto) 0.2 L (0.3-3.8) % Neut # (Auto) 12.0 H (1.7-6.9) x10-3/uL Lymph # (Auto) 1.1 (0.5-4.5) x10-3/uL [place] # (Auto) 0.9 (0.0-1.2) x10-3/uL Eos # (Auto) 0.0 (0.0-0.6) x10-3/uL Baso # (Auto) 0.0 (0.0-0.3) x10-3/uL Add Manual Diff Yes Neutrophils % (Manual) 93 H (46-82) % Lymphocytes % (Manual) 5 L (13-37) % Monocytes % (Manual) 1 L (4-12) % Myelocytes % 1 H (0-0) % Hypersegmented Neuts Few Sodium 138 (135-145) mmol/L Potassium 4.1 (3.5-5.3) mmol/L Chloride 102 D (100-110) mmol/L Carbon Dioxide 26 (21-32) mmol/L BUN 11 (7-18) mg/dL Creatinine 0.7 (0.70-1.30) mg/dL Est Cr Clr Drug Dosing 121.63 mL/min Estimated GFR (MDRD) > 60 (>60) BUN/Creatinine Ratio 15.7 (9-20) Glucose 93 (80-116) mg/dL Calcium 8.4 L (8.6-10.2) mg/dL 07/25/ Range/Units 06:10 WBC (3.2-10.1) x10-3/uL RBC (3.90-5.90) x10(6)uL Hgb (12.9-17.7) g/dL Hct (38.3-50.1) % MCV (80.8-98.7) fL MCH (27.0-33.3) pg MCHC (28.7-35.3) g/dL RDW (12.4-15.0) % Plt Count (117-477) x10(3)uL MPV (6.7-11.0) fL Neut % (Auto) (40.3-71.8) % Lymph % (Auto) (15.8-45.3) % [place] % (Auto) (5.5-15.2) % Eos % (Auto) (0.1-6.8) % Baso % (Auto) (0.3-3.8) % Neut # (Auto) (1.7-6.9) x10-3/uL Lymph # (Auto) (0.5-4.5) x10-3/uL [place] # (Auto) (0.0-1.2) x10-3/uL Eos # (Auto) (0.0-0.6) x10-3/uL Baso # (Auto) (0.0-0.3) x10-3/uL Add Manual Diff Neutrophils % (Manual) (46-82) % Lymphocytes % (Manual) (13-37) % Monocytes % (Manual) (4-12) % Myelocytes % (0-0) % Hypersegmented Neuts Sodium 140 (135-145) mmol/L Potassium 4.4 (3.5-5.3) mmol/L Chloride 103 (100-110) mmol/L Carbon Dioxide 31 (21-32) mmol/L BUN 13 (7-18) mg/dL Creatinine 0.8 (0.70-1.30) mg/dL Est Cr Clr Drug Dosing 106.43 mL/min Estimated GFR (MDRD) > 60 (>60) BUN/Creatinine Ratio 16.3 (9-20) Glucose 98 (80-116) mg/dL Calcium 8.0 L (8.6-10.2) mg/dL Result Diagrams: 08/31/20 06:10 08/31/20 06:10 Sepsis Event Note - Evaluation Sepsis Screening Result: No Definite Risk - Focused Exam Vital Signs: Vital Signs Temp Pulse Resp BP Pulse Ox 08/31/20 00:00 98.1 F 101 H 20 125/82 92 L - Problem List & Annotations (1) Acute parotitis SNOMED Code(s): 74330318, 69189352 Code(s): K11.21 - ACUTE SIALOADENITIS Status: Acute Current Visit: Yes Annotation/Comment:: Merrem & Doxycycline day 2. Alternate Morphine & Tylenol as needed. Caio-Stir and oral cares every 4 hours as needed. (2) Hypomagnesemia SNOMED Code(s): 655875019 Code(s): E83.42 - HYPOMAGNESEMIA Status: Acute Current Visit: Yes Annotation/Comment:: Improved to 1.7. Decrease dose to 400 mg at bedtime. (3) Weakness SNOMED Code(s): 60654150 Code(s): R53.1 - WEAKNESS Status: Acute Current Visit: Yes (4) Recurrent falls SNOMED Code(s): 068856420 Code(s): R29.6 - REPEATED FALLS Status: Acute Current Visit: Yes (5) Thrombocytopenia SNOMED Code(s): 282061487 Code(s): D69.6 - THROMBOCYTOPENIA, UNSPECIFIED Status: Acute Current Visit: Yes Annotation/Comment:: stable (6) Anemia SNOMED Code(s): 086110624 Code(s): D64.9 - ANEMIA, UNSPECIFIED Status: Acute Current Visit: Yes Qualifiers: Other causes of anemia: nutritional, unspecified Annotation/Comment:: stable (7) Bile duct cancer SNOMED Code(s): 996962593 Code(s): C24.0 - MALIGNANT NEOPLASM OF EXTRAHEPATIC BILE DUCT Status: Chronic Current Visit: Yes Onset Date: ~2018 (8) Metastasis SNOMED Code(s): 127947686 Code(s): C79.9 - SECONDARY MALIGNANT NEOPLASM OF UNSPECIFIED SITE Status: Chronic Current Visit: Yes Qualifiers: Area of secondary neoplastic involvement: bone Qualified Code(s): C79.51 - Secondary malignant neoplasm of bone Annotation/Comment:: ribs/back, liver (9) Mild neurocognitive disorder SNOMED Code(s): 417852258 Code(s): G31.84 - MILD COGNITIVE IMPAIRMENT, SO STATED Status: Acute Current Visit: Yes Annotation/Comment:: MOCA 02/05 vs MME . His sister Ladan is power of magazine supervisor. (10) Protein calorie malnutrition SNOMED Code(s): 238796599 Code(s): E46 - UNSPECIFIED PROTEIN-CALORIE MALNUTRITION Status: Acute Current Visit: Yes Qualifiers: Protein-calorie malnutrition severity: moderate Qualified Code(s): E44.0 - Moderate protein-calorie malnutrition Annotation/Comment:: Albumin 2.1. (11) Hypokalemia SNOMED Code(s): 39392683 Code(s): E87.6 - HYPOKALEMIA Status: Resolved Current Visit: Yes Annotation/Comment:: K 4.6, discontinue potassium supplements. 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 SNOMED Code(s): 226896483 Code(s): C80.1 - MALIGNANT (PRIMARY) NEOPLASM, UNSPECIFIED; G63 - POLYNEUROPATHY IN DISEASES CLASSIFIED ELSEWHERE Status: Acute Current Visit: Yes - Problem List Review Problem List Initiated/Reviewed/Updated: Yes - My Orders Last 24 Hours: My Active Orders 08/30/20 08:30 Soft Tissue Neck w Cont [CT] Routine Doxycycline [Vibramycin] 100 mg Sodium Chloride 0.9% [Normal Saline] 100 ml IV Q12H 08/30/20 08:45 Sodium Chloride 0.9% [Saline Flush] 10 ml FLUSH ASDIRECTED PRN 08/30/20 21:00 Amitriptyline [Elavil] 50 mg PO BEDTIME Meropenem [Merrem] 1 gm IVPUSH Q8H 08/31/20 09:00 Triamcinolone Acetonide [Triamcinolone Acetonide 0.1% Crm] 0 gm TOP BID - Plan Plan:: 1. Acute parotitis: CT soft tissue neck with contrast showed no obstruction or stones in duct, most likely secondary to poor oral cares. Received dose of Narcan yesterday after Dilaudid given in am, and slept all day. Alternate Morphine & Tylenol as needed to help decrease pain. Encourage oral intake today. Oral cares & Caio-Stir every 4 hours as needed. 2. Hypomagnesemia/hypokalemia: Magnesium 400 mg at bedtime. 3. Dry mouth: Magic mouthwash swish & spit q2h as needed, Caio-stir as needed. Decreased Amitriptyline 50 mg at bedtime, stated it is better today, not as sore, able to eat some pudding today. 4. 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 He has progressively been declining. Will be going to [facility] on Tuesday. 5. Protein calorie malnutrition: Albumin 2.1. Dexamethasone 4 mg daily. 6. Neurocognitive deficits: MOCA screen 02/05, his sister is POA for him. Poor insight into his mental state. 7. Discharge: Accepted at [facility] for TuesdaySeptember 02 at 10 am. Has had Covid vaccination and recent chest x-ray, will not need Covid or TB testing prior to discharge. Will switch him to oral antibiotics for discharge.
[2020-08-31] MEDS: Doxycycline 100 MG in Sodium Chloride 0.9% 100 ML IV SCH ×2 (08:33→21:11)
[2020-08-31] MEDS: Citalopram 20 MG Tab PO SCH (08:35)
[2020-08-31] MEDS: Apixaban 5 MG Tab PO SCH ×2 (08:35→21:14)
[2020-08-31] MEDS: Triamcinolone Acetonide 0.1% Crm 15 GM Tube TOP SCH ×2 (08:35→21:14)
[2020-08-31] MEDS: Morphine 15 MG Tab PO PRN ×3 (11:51→22:26)
[2020-08-31] MEDS: Acetaminophen 650 MG Tab.ER PO PRN ×2 (14:44→22:26)
[2020-08-31] MEDS: Amitriptyline 25 MG Tab PO SCH (21:13)
[2020-08-31] MEDS: Melatonin 3 MG Tab PO SCH (21:13)
[2020-08-31] MEDS: Simvastatin 10 MG Tab PO SCH (21:14)
[2020-08-31] MEDS: Magnesium Oxide 400 MG Tab PO SCH (21:14)
[2020-09-01] MEDS: Meropenem 1 GM SDV IVPUSH SCH (05:37)
[2020-09-01] MEDS: Sodium Chloride 0.9% 10 ML Syringe FLUSH PRN ×2 (05:39→05:43)
[2020-09-01] MEDS: Pantoprazole 40 MG Tab.CR PO SCH (06:45)
[2020-09-01] MEDS: Citalopram 20 MG Tab PO SCH (08:50)
[2020-09-01] MEDS: Apixaban 5 MG Tab PO SCH ×2 (08:50→20:56)
[2020-09-01] MEDS: Doxycycline 100 MG in Sodium Chloride 0.9% 100 ML IV SCH (10:04)
[2020-09-01] MEDS: Triamcinolone Acetonide 0.1% Crm 15 GM Tube TOP SCH ×3 (12:23→20:56)
--- NOTE | 2020-09-01 14:05 | PCM.PN ---
- General Info Date of Service: 09/01/20 Subjective Update: Left jaw swelling unchanged, less painful per patient. He was able to eat more yesterday had Ensure and puddings. Mouth not as sore. He had urinary retention yesterday 969 ml, straight cathed. No abdominal pain. - Patient Data Vitals - Most Recent: Last Vital Signs Temp 100 F 09/01/20 08:06 Pulse 112 H 09/01/20 08:06 Resp 16 09/01/20 08:06 BP 109/86 09/01/20 08:06 Pulse Ox 92 L 09/01/20 08:06 Weight - Most Recent: 189 lb 8 oz I&O - Last 24 Hours: Intake & Output 08/31/20 09/01/20 09/01/20 22:59 06:59 14:59 Output Total 700 Balance -700 Med Orders - Current: Current Medications Acetaminophen (Acetaminophen 650 Mg Tab.Er) 650 mg PO Q8H PRN PRN Reason: Pain Last Admin: 08/31/20 22:26 Dose: 650 mg Documented by: Amoxicillin/Clavulanate Potassium (Amoxicillin/Clavulanate K 875-125 Mg Tab) 1 tab PO BID [facility] Apixaban (Apixaban 5 Mg Tab) 5 mg PO BID [facility] Last Admin: 09/01/20 08:50 Dose: 5 mg Documented by: Calcium Carbonate/Glycine (Calcium Carbonate 500 Mg Tab.Chew) 500 mg PO Q4H PRN PRN Reason: HEARTBURN Last Admin: 08/31/20 14:44 Dose: 500 mg Documented by: Citalopram Hydrobromide (Citalopram 20 Mg Tab) 40 mg PO DAILY [facility] Last Admin: 09/01/20 08:50 Dose: 40 mg Documented by: Al Hydroxide/Mg Hydroxide 30 ml/ Lidocaine HCl 30 ml/Diphenhydramine HCl 75 mg 0 ml PO Q2H PRN PRN Reason: MOUTH PAIN Last Admin: 08/29/20 15:38 Dose: 15 ml Documented by: Dexamethasone (Dexamethasone 4 Mg Tab) 4 mg PO DAILY [facility] Doxycycline Hyclate (Doxycycline 100 Mg Tab) 100 mg PO BID [facility] Heparin Sodium (Porcine) (Heparin Sodium 100 Units/Ml 5 Ml Syringe) 500 units FLUSH ASDIRECTED PRN PRN Reason: Portacath flush Last Admin: 08/25/20 12:47 Dose: 500 units Documented by: Loperamide HCl (Loperamide 2 Mg Cap) 2 mg PO ASDIRECTED PRN PRN Reason: DIARRHEA Last Admin: 08/27/20 20:26 Dose: 2 mg Documented by: Magnesium Oxide (Magnesium Oxide 400 Mg Tab) 400 mg PO WITHDINNER [facility] Melatonin (Melatonin 3 Mg Tab) 6 mg PO BEDTIME [facility] Last Admin: 08/31/20 21:13 Dose: 6 mg Documented by: Metoclopramide HCl (Metoclopramide 5 Mg Tab) 5 mg PO Q6H PRN PRN Reason: Nausea/Vomiting Mirtazapine (Mirtazapine 15 Mg Tab) 15 mg PO BEDTIME [facility] Morphine Sulfate (Morphine 15 Mg Tab) 15 mg PO Q4H PRN PRN Reason: severe Pain Last Admin: 08/31/20 22:26 Dose: 15 mg Documented by: Pantoprazole Sodium (Pantoprazole 40 Mg Tab.Cr) 40 mg PO ACBREAKFAST [facility] Last Admin: 09/01/20 06:45 Dose: Not Given Documented by: Simvastatin (Simvastatin 10 Mg Tab) 10 mg PO BEDTIME [facility] Last Admin: 08/31/20 21:14 Dose: 10 mg Documented by: Sodium Chloride (Sodium Chloride 0.9% 10 Ml Syringe) 10 ml FLUSH ASDIRECTED PRN PRN Reason: IV Use Last Admin: 09/01/20 05:43 Dose: 10 ml Documented by: Triamcinolone Acetonide (Triamcinolone Acetonide 0.1% Crm 15 Gm Tube) 0 gm TOP BID [facility] Stop: 09/07/20 09:01 Last Admin: 09/01/20 12:23 Dose: Not Given Documented by: Discontinued Medications Acetaminophen (Acetaminophen 650 Mg Tab.Er) 650 mg PO Q4H PRN PRN Reason: Pain Acetaminophen/Diphenhydramine HCl (Acetaminophen/Diphenhydramine 500-25 Mg Tab) 1 tab PO BEDTIME [facility] Last Admin: 08/26/20 20:25 Dose: 1 tab Documented by: Amitriptyline HCl (Amitriptyline 25 Mg Tab) 75 mg PO BEDTIME [facility] Last Admin: 08/29/20 20:28 Dose: 75 mg Documented by: Amitriptyline HCl (Amitriptyline 25 Mg Tab) 50 mg PO BEDTIME [facility] Last Admin: 08/31/20 21:13 Dose: 50 mg Documented by: Azithromycin (Azithromycin 250 Mg Tab) 250 mg PO DAILY [facility] Stop: 09/02/20 09:01 Calcium Carbonate/Glycine (Calcium Carbonate 500 Mg Tablet) 1,500 mg PO BIDMEALS [facility] Last Admin: 08/28/20 08:55 Dose: Not Given Documented by: Al Hydroxide/Mg Hydroxide 30 ml/ Lidocaine HCl 30 ml/Diphenhydramine HCl 75 mg 0 ml PO Q4H PRN PRN Reason: MOUTH PAIN Last Admin: 08/28/20 15:40 Dose: 15 ml Documented by: Dexamethasone (Dexamethasone 4 Mg Tab) 4 mg PO DAILY [facility] Last Admin: 08/30/20 08:13 Dose: 4 mg Documented by: Dexamethasone (Dexamethasone 4 Mg/Ml Sdv) 10 mg IVPUSH ONETIME ONE Stop: 08/30/20 08:33 Last Admin: 08/30/20 09:19 Dose: Not Given Documented by: Dexamethasone (Dexamethasone 4 Mg/Ml Sdv) 6 mg IVPUSH ONETIME ONE Stop: 08/30/20 09:16 Last Admin: 08/30/20 10:02 Dose: 6 mg Documented by: Diatrizoate Meglum/Diatrizoate Sod (Diatrizoate Meglumine/Diatrizoate Sodium 37% 30 Ml Bottle) 30 ml PO ASDIRECTED ONE Stop: 08/25/20 16:24 Last Admin: 08/25/20 18:26 Dose: 30 ml Documented by: Hydromorphone HCl (Hydromorphone 2 Mg/Ml Sdv) 2 mg IVPUSH ONETIME ONE Stop: 08/30/20 08:34 Last Admin: 08/30/20 08:53 Dose: 2 mg Documented by: Magnesium Sulfate 4 gm/ Premix 50 mls @ 12.5 mls/hr IV ONETIME ONE Stop: 08/24/20 15:09 Last Admin: 08/24/20 11:29 Dose: 12.5 mls/hr Documented by: Sodium Chloride (Normal Saline) 1,000 mls @ 100 mls/hr IV ASDIRECTED [facility] Stop: 08/26/20 00:44 Last Admin: 08/25/20 01:11 Dose: 100 mls/hr Documented by: Doxycycline Hyclate 100 mg/ (Sodium Chloride) 100 mls @ 100 mls/hr IV Q12H [facility] Stop: 09/01/20 12:00 Last Admin: 09/01/20 10:04 Dose: 100 mls/hr Documented by: Iopamidol (Iopamidol 755 Mg/Ml 100 Ml Bottle) 100 ml IV . DIRECTED ONE Stop: 08/25/20 16:24 Last Admin: 08/25/20 18:26 Dose: 95 ml Documented by: Iopamidol (Iopamidol 755 Mg/Ml 75 Ml Bottle) 75 ml IV ASDIRECTED ONE Stop: 08/30/20 08:52 Last Admin: 08/30/20 09:30 Dose: 75 ml Documented by: Loperamide HCl (Loperamide 2 Mg Cap) 4 mg PO ONETIME ONE Stop: 08/24/20 20:28 Last Admin: 08/24/20 20:57 Dose: 4 mg Documented by: Loperamide HCl (Loperamide 2 Mg Cap) 2 mg PO ASDIRECTED PRN PRN Reason: Diarrhea Last Admin: 08/26/20 01:49 Dose: 2 mg Documented by: Magnesium Oxide (Magnesium Oxide 400 Mg Tab) 400 mg PO BID [facility] Last Admin: 08/28/20 20:58 Dose: 400 mg Documented by: Magnesium Oxide (Magnesium Oxide 400 Mg Tab) 400 mg PO BEDTIME [facility] Last Admin: 08/31/20 21:14 Dose: 400 mg Documented by: Melatonin (Melatonin 3 Mg Tab) 6 mg PO BEDTIME PRN PRN Reason: Insomnia Last Admin: 08/26/20 01:54 Dose: 6 mg Documented by: Meropenem (Meropenem 1 Gm Sdv) 1 gm IVPUSH Q8H [facility] Last Admin: 08/30/20 12:59 Dose: 1 gm Documented by: Meropenem (Meropenem 1 Gm Sdv) 1 gm IVPUSH Q8H [facility] Last Admin: 09/01/20 05:37 Dose: 1 gm Documented by: Naloxone HCl (Naloxone 0.4 Mg/Ml Sdv) 0.1 mg IVPUSH ONETIME PRN PRN Reason: Oversedation Naloxone HCl (Naloxone 0.4 Mg/Ml Sdv) 0.4 mg IVPUSH ONETIME PRN PRN Reason: Oversedation Last Admin: 08/30/20 17:50 Dose: 0.4 mg Documented by: Potassium Chloride (Potassium Chloride 20 Meq Tab.Er) 40 meq PO ONETIME ONE Stop: 08/24/20 11:12 Last Admin: 08/24/20 11:29 Dose: 40 meq Documented by: Potassium Chloride (Potassium Chloride 20 Meq Tab.Er) 20 meq PO DAILY [facility] Last Admin: 08/28/20 08:50 Dose: 20 meq Documented by: Sodium Chloride (Sodium Chloride 0.9% 10 Ml Syringe) 10 ml FLUSH ASDIRECTED PRN PRN Reason: Keep Vein Open Last Admin: 08/26/20 08:42 Dose: 10 ml Documented by: - Exam Central Line Total Time: General: Alert, Oriented, Cooperative, No Acute Distress HEENT: Other (Left jaw/parotid swelling, TTP, no overlying erythema) Neck: Trachea Midline, Lymphadenopathy (left) Lungs: Clear to Auscultation, Normal Respiratory Effort Cardiovascular: Regular Rate, Regular Rhythm GI/Abdominal Exam: Normal Bowel Sounds, Soft, Non-Tender, No Distention (Male) Exam: Deferred Peripheral Pulses: 2+: Radial (L), Radial (R) Wound/Incisions: No: Erythema - Patient Data Result Diagrams: 08/31/20 06:10 08/31/20 06:10 Sepsis Event Note - Evaluation Sepsis Screening Result: No Definite Risk - Focused Exam Vital Signs: Vital Signs Temp Pulse Resp BP Pulse Ox 09/01/20 08:06 100 F 112 H 16 109/86 92 L - Problem List & Annotations (1) Acute parotitis SNOMED Code(s): 38232866, 71596775 Code(s): K11.21 - ACUTE SIALOADENITIS Status: Acute Current Visit: Yes Annotation/Comment:: Merrem & Doxycycline day 3. Alternate Morphine & Tylenol as needed. Caio-Stir and oral cares every 4 hours as needed. (2) Urinary retention SNOMED Code(s): 978841733 Code(s): R33.9 - RETENTION OF URINE, UNSPECIFIED Status: Acute Current Vi sit: Yes Annotation/Comment:: painless, likely secondary to narcotics over the weekend and Amitriptyline. (3) Weakness SNOMED Code(s): 72135402 Code(s): R53.1 - WEAKNESS Status: Acute Current Visit: Yes (4) Recurrent falls SNOMED Code(s): 294025672 Code(s): R29.6 - REPEATED FALLS Status: Acute Current Visit: Yes (5) Bile duct cancer SNOMED Code(s): 744860605 Code(s): C24.0 - MALIGNANT NEOPLASM OF EXTRAHEPATIC BILE DUCT Status: Chronic Current Visit: Yes Onset Date: ~2018 (6) Metastasis SNOMED Code(s): 470613470 Code(s): C79.9 - SECONDARY MALIGNANT NEOPLASM OF UNSPECIFIED SITE Status: Chronic Current Visit: Yes Qualifiers: Area of secondary neoplastic involvement: bone Qualified Code(s): C79.51 - Secondary malignant neoplasm of bone Annotation/Comment:: ribs/back, liver (7) Palliative care status SNOMED Code(s): 675081415 Code(s): Z51.5 - ENCOUNTER FOR PALLIATIVE CARE Status: Chronic Current Visit: Yes (8) Thrombocytopenia SNOMED Code(s): 530676129 Code(s): D69.6 - THROMBOCYTOPENIA, UNSPECIFIED Status: Chronic Current Visit: Yes Annotation/Comment:: stable (9) Anemia SNOMED Code(s): 756630293 Code(s): D64.9 - ANEMIA, UNSPECIFIED Status: Chronic Current Visit: Yes Qualifiers: Other causes of anemia: nutritional, unspecified Annotation/Comment:: stable (10) Mild neurocognitive disorder SNOMED Code(s): 727524808 Code(s): G31.84 - MILD COGNITIVE IMPAIRMENT, SO STATED Status: Acute Current Visit: Yes Annotation/Comment:: MOCA 02/05 vs MME . His sister Ladan is power of criminal defense attorney. (11) Protein calorie malnutrition SNOMED Code(s): 913365731 Code(s): E46 - UNSPECIFIED PROTEIN-CALORIE MALNUTRITION Status: Acute Current Visit: Yes Qualifiers: Protein-calorie malnutrition severity: moderate Qualified Code(s): E44.0 - Moderate protein-calorie malnutrition Annotation/Comment:: Albumin 2.1. 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 Magnesium 400 mg at bedtime. (16) Hypokalemia SNOMED Code(s): 47054671 Code(s): E87.6 - HYPOKALEMIA Status: Resolved Current Visit: Yes Annotation/Comment:: K 4.6, discontinue potassium supplements. - Problem List Review Problem List Initiated/Reviewed/Updated: Yes - My Orders Last 24 Hours: My Active Orders 08/31/20 18:40 Bladder Scan [RC] ASDIRECTED Urinary Catheter Assessment [RC] QSHIFT 08/31/20 18:45 Chavarria Catheter Insertion [Insert Urinary Catheter] [OM.PC] Q24H 09/01/20 18:00 Magnesium Oxide 400 mg PO WITHDINNER 09/01/20 21:00 Amoxicillin/Clavulanate K [Augmentin 875 MG/125 MG] 1 tab PO BID Doxycycline [Vibra-Tabs] 100 mg PO BID Mirtazapine [Remeron] 15 mg PO BEDTIME 09/02/20 09:00 dexAMETHasone 4 mg PO DAILY - Plan Plan:: 1. Acute parotitis: Merrem & Doxycycline day 3, will get IV doses this morning and switch to oral Augmentin 875 and Doxycycline 100 mg this evening, then will be discharged on orals. Restart Dexamethasone 4 mg daily to help with swelling. Alternate Morphine & Tylenol as needed to help decrease pain. Encourage oral intake today. Oral cares & Caio-Stir every 4 hours as needed. 2. Urinary retention: possibly combination of narcotics and Amitriptyline. Discontinue Amitriptyline. Will monitor for suprapubic distention and straight cath as needed. is not imminent so will not place Chavarria at this time. 3. Dry mouth: Magic mouthwash swish & spit q2h as needed, Caio-stir as needed. Discontinue Amitriptyline and start Mirtazapine 15 mg at bedtime. 4. 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 He has progressively been declining. Will be going to [facility] [place] on Tuesday with hospice. 5. Protein calorie malnutrition: Albumin 2.1. Restart Dexamethasone 4 mg daily. Start Mirtazapine 15 mg at bedtime. 6. Neurocognitive deficits: MOCA screen 02/05, his sister is POA for him. Poor insight into his mental state. 7. Discharge: Accepted at [facility] for TuesdaySeptember 02 at 1pm and hospice will admit. Has had Covid vaccination and recent chest x-ray, will not need Covid or TB testing prior to discharge. Will switch him to oral antibiotics for discharge.
[2020-09-01] MEDS ORDERED: Magnesium Oxide 400 MG Tab PO SCH (18:00)
[2020-09-01] MEDS: Loperamide 2 MG Cap PO PRN ×2 (18:21→21:16)
[2020-09-01] MEDS: Amoxicillin/Clavulanate K 875-125 MG Tab PO SCH (20:55)
[2020-09-01] MEDS: Melatonin 3 MG Tab PO SCH (20:56)
[2020-09-01] MEDS: Doxycycline 100 MG Tab PO SCH (20:57)
[2020-09-01] MEDS: Simvastatin 10 MG Tab PO SCH (20:58)
[2020-09-01] MEDS ORDERED: Mirtazapine 15 MG Tab PO SCH (21:00)
[2020-09-02] MEDS: Loperamide 2 MG Cap PO PRN ×2 (02:46→04:28)
[2020-09-02] MEDS: Pantoprazole 40 MG Tab.CR PO SCH (06:31)
[2020-09-02] MEDS: Apixaban 5 MG Tab PO SCH (08:00)
[2020-09-02] MEDS: Triamcinolone Acetonide 0.1% Crm 15 GM Tube TOP SCH (08:00)
[2020-09-02] MEDS: Citalopram 20 MG Tab PO SCH (08:00)
[2020-09-02] MEDS: Amoxicillin/Clavulanate K 875-125 MG Tab PO SCH (08:00)
[2020-09-02] MEDS: Doxycycline 100 MG Tab PO SCH (08:01)
[2020-09-02] MEDS ORDERED: Dexamethasone 4 MG Tab PO SCH (09:00)
--- NOTE | 2020-09-02 13:31 | PCM.DCSUM1 ---
Discharge Summary - Hospital Course HPI Initial Comments: Ari presents to [place] today for fall at home, he has had more generalized weakness over the past few weeks. He was seen in clinic twice this week also for falls, bruising on his back, arms are from previous falls. No fractures or loss of consciousness with falls. No pain. He denies any diarrhea, black or bloody stools, dark red urine but family stated urine this week at clinic was negative for blood. He has poor appetite, family also confirms. She noted that he has been more confused lately and she noticed in the past few weeks that his right pupil looks funny, doesn't seem to react like the other one, just staring off. He denies any change of his vision. 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 Family states he has never had imaging done of his head in regards to cancer or since he has been falling. 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 He was last hospitalized in [place] with cellulitis beginning of July 2020, his Hgb was 11 at that time, platelets were 229. In clinic his potassium was low this week, no record of magnesium level per his [place] chart, has been on potassium replacement for this. He got 3 bags of IV fluids total between the two clinic visits this week. Denies any slurred speech or limb weakness. No history of stroke. Diagnosis: Stroke: No - Discharge Data Discharge Date: 09/02/20 Discharge Disposition: DC/Tfer to Hospice - Home 49 Condition: Stable - Referral to Home Health Date of Face to Face Encounter: 09/02/20 Reason for Homebound Status: [facility] with hospice Primary Care Physician: Roc Amor MD Skilled Need: Hospice - Discharge Diagnosis/Problem(s) (1) Acute parotitis SNOMED Code(s): 63595306, 05453287 ICD Code: K11.21 - ACUTE SIALOADENITIS Status: Acute Current Visit: Yes Problem Details: Augmentin & Doxycycline day 4. Alternate Morphine & Tylenol as needed. Caio-Stir and oral cares every 4 hours as needed. (2) Urinary retention SNOMED Code(s): 795166237 ICD Code: R33.9 - RETENTION OF URINE, UNSPECIFIED Status: Acute Current Visit: Yes Problem Details: Straight cath as needed. Was able to urinate on his own this morning per patient. (3) Weakness SNOMED Code(s): 16556673 ICD Code: R53.1 - WEAKNESS Status: Acute Current Visit: Yes (4) Recurrent falls SNOMED Code(s): 612077145 ICD Code: R29.6 - REPEATED FALLS Status: Acute Current Visit: Yes (5) Bile duct cancer SNOMED Code(s): 959147643 ICD Code: C24.0 - MALIGNANT NEOPLASM OF EXTRAHEPATIC BILE DUCT Status: Chronic Current Visit: Yes Onset Date: ~2018 (6) Metastasis SNOMED Code(s): 732865698 ICD Code: C79.9 - SECONDARY MALIGNANT NEOPLASM OF UNSPECIFIED SITE Status: Chronic Current Visit: Yes Problem Details: ribs/back, liver Qualifiers: Area of secondary neoplastic involvement: bone Qualified Code(s): C79.51 - Secondary malignant neoplasm of bone (7) Palliative care status SNOMED Code(s): 583522475 ICD Code: Z51.5 - ENCOUNTER FOR PALLIATIVE CARE Status: Chronic Current Visit: Yes (8) Thrombocytopenia SNOMED Code(s): 869404519 ICD Code: D69.6 - THROMBOCYTOPENIA, UNSPECIFIED Status: Chronic Current Visit: Yes Problem Details: stable (9) Anemia SNOMED Code(s): 435888073 ICD Code: D64.9 - ANEMIA, UNSPECIFIED Status: Chronic Current Visit: Yes Problem Details: stable Qualifiers: Other causes of anemia: nutritional, unspecified (10) Mild neurocognitive disorder SNOMED Code(s): 538819366 ICD Code: G31.84 - MILD COGNITIVE IMPAIRMENT, SO STATED Status: Acute Current Visit: Yes Problem Details: MOCA 02/05 vs MME . His sister Ladan is power of defense attorney. (11) Protein calorie malnutrition SNOMED Code(s): 700509492 ICD Code: E46 - UNSPECIFIED PROTEIN-CALORIE MALNUTRITION Status: Acute Current Visit: Yes Problem Details: Albumin 2.1. Qualifiers: Protein-calorie malnutrition severity: moderate Qualified Code(s): E44.0 - Moderate protein-calorie malnutrition (12) Bilateral pleural effusion SNOMED Code(s): 695834419 ICD Code: J90 - PLEURAL EFFUSION, NOT ELSEWHERE CLASSIFIED Status: Acute Current Visit: Yes (13) Abdominal ascites SNOMED Code(s): 521119463 ICD Code: R18.8 - OTHER ASCITES Status: Acute Current Visit: Yes Qualifiers: Ascites type: malignant Qualified Code(s): R18.0 - Malignant ascites (14) Neuropathy associated with cancer SNOMED Code(s): 880709165 ICD Code: C80.1 - MALIGNANT (PRIMARY) NEOPLASM, UNSPECIFIED; G63 - POLYNEUROPATHY IN DISEASES CLASSIFIED ELSEWHERE Status: Acute Current Visit: Yes (15) Hypomagnesemia SNOMED Code(s): 342321474 ICD Code: E83.42 - HYPOMAGNESEMIA Status: Acute Current Visit: Yes Problem Details: Stable. Magnesium 400 mg at bedtime. (16) Hypokalemia SNOMED Code(s): 76563910 ICD Code: E87.6 - HYPOKALEMIA Status: Resolved Current Visit: Yes Problem Details: K 4.6, discontinue potassium supplements. - Patient Summary/Data Consults: Consultations 08/24/20 11:38 OT Evaluation and Treatment [CONS] Routine Please Evaluate and Treat. OT Reason for Consult: ADL's This query below is only for informational purposes and is not editable. Admission Diagnosis/Problem: Weakness PT Evaluation and Treatment [CONS] Routine Please Evaluate and Treat. PT Reason for Consult: Strengthening This query below is only for informational purposes and is not editable. Admission Diagnosis/Problem: Weakness 08/25/20 10:26 Consult to Dietary [Consult to [employer]] [CONS] Routine Comment: Physician Instructions: Quantity: Reason for Consult: bile duct ca, 28 lb weight loss in 3 months 08/26/20 11:07 Consult to Speech Language Pathology [CONSULTING PSYCHOLOGIST Evaluation and Treatment] [CONS] Routine Please Evaluate and Treat CONSULTING PSYCHOLOGIST Reason for Consult: swallowing Pending Discharge: No: trouble swallowing pills this am, ct neg Discharge Disposition: Home w Home Health This query below is only for informational purposes and is not editable. Admission Diagnosis/Problem: Weakness Hospital Course: Ari initially came in due to recurrent falls, found to have critical low magnesium level at 0.8. Received Magnesium 4 grams IV in ER, came up to 1.5. Changed to oral Magnesium 400 mg bid and came up to 1.7. Discontinued on discharge. Potassium levels corrected and potassium supplements were discontinued. Obtained CT chest/abdomen/pelvis for Dr Platt at [facility], showed worsening of his bile duct cancer, mets to bones, pleural effusions and abdominal ascites. 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 Family observed a therapy session and felt they could not safely take him to [place] for his oncology appt so this was cancelled. Speech therapy was consulted for cognitive assessment and swallowing as he had issues with some of his pills. He scored 12/30 on his MOCA cognitive screen. He did not require a formal video swallow study. Discontinue Tylenol PM and reduced dose of Amitriptyline to help with dry mouth, which improved. Ari started having some lymphadenopathy on left and on Tuesday developed swelling of left parotid gland. CT soft tissue neck was ordered to rule out abscess. There was no abscess but evidence of acute parotitis without stone obstruction. He was started on Merrem and Doxycycline IV then switched to Augmentin & Doxycycline po 09/01 evening and will continue for 7 more days to complete course. He also had Dexamethasone 4 mg daily for bone pain, received 10 mg on Tuesday to help with left parotitis swelling/pain, resumed 4 mg dose prior to discharge. He was oversedated after receiving Dilaudid 2 mg x 1 on Tuesday prior to CT neck, required reversal with Narcan 0.4 mg x 1. He had urinary retention on Tuesday and yesterday which gradually improved. Had some diarrhea yesterday, magnesium discontinued on discharge. Amitriptyline was discontinued for dry mouth and possible urinary retention and switched to Mirtazapine 15 mg at bedtime. Family elected last week after CT results of his chest/abdomen/pelvis, meeting with PT/OT elected to have go to retirement so he could go onto Hospice services. He will be discharged to [facility] with hospice today. - Patient Instructions Diet: Regular Diet as Tolerated (ensure shakes: strawberry & chocolate, puddings, patient's preference) Activity: As Tolerated Driving: Do Not Drive Showering/Bathing: May Shower Other/Special Instructions: Transfer to [facility] with hospice care. - Discharge Plan *PRESCRIPTION DRUG MONITORING PROGRAM REVIEWED*: Not Applicable *COPY OF PRESCRIPTION DRUG MONITORING REPORT IN PATIENT ANU: Not Applicable Home Medications: Home Meds Citalopram [Citalopram HBr] 40 mg PO DAILY 07/19/18 [History] Acetaminophen [Tylenol Arthritis] 650 mg PO Q4H PRN 08/24/20 [History] Apixaban [Eliquis] 5 mg PO BID 08/24/20 [History] Morphine Sulfate 15 mg PO Q4H PRN 08/25/20 [History] Amoxicillin/Clavulanate K [Augmentin 875-125 MG] 1 tab PO BID #13 tablet 09/02/20 [Rx] Doxycycline [Vibra-Tabs] 100 mg PO BID #13 tablet 09/02/20 [Rx] Melatonin 6 mg PO BEDTIME tablet 09/02/20 [Rx] Mirtazapine [Remeron] 15 mg PO BEDTIME #7 tablet 09/02/20 [Rx] Triamcinolone Acetonide [Triamcinolone Acetonide 0.1% Crm] 0 gm TOP BID tube 09/02/20 [Rx] dexAMETHasone [Dexamethasone] 4 mg PO DAILY #7 tablet 09/02/20 [Rx] Patient Handouts: Fall Prevention in Hospitals, Adult, Venous Thromboembolism Prevention Forms: ED Department Discharge - Discharge Summary/Plan Comment DC Time >30 min.: Yes - General Info Date of Service: 09/02/20 Subjective Update: Ari states feeling better today, that swelling is down. Mouth pain is improved, took some morphine this morning but has been using Tylenol rest of the day. Had some diarrhea last evening. Urinated this morning he states without trouble. - Patient Data Vitals - Most Recent: Last Vital Signs Temp 97.8 F 09/02/20 07:30 Pulse 100 09/02/20 07:30 Resp 16 09/02/20 07:30 BP 123/80 09/02/20 07:30 Pulse Ox 93 L 09/02/20 07:30 Weight - Most Recent: 187 lb LALITO Results - Last 24 hrs: Microbiology 08/25/20 20:35 Occult Blood - Final Stool / Feces Med Orders - Current: Current Medications Acetaminophen (Acetaminophen 650 Mg Tab.Er) 650 mg PO Q8H PRN PRN Reason: Pain Last Admin: 08/31/20 22:26 Dose: 650 mg Documented by: Amoxicillin/Clavulanate Potassium (Amoxicillin/Clavulanate K 875-125 Mg Tab) 1 tab PO BID [facility] Last Admin: 09/02/20 08:00 Dose: 1 tab Documented by: Apixaban (Apixaban 5 Mg Tab) 5 mg PO BID [facility] Last Admin: 09/02/20 08:00 Dose: 5 mg Documented by: Calcium Carbonate/Glycine (Calcium Carbonate 500 Mg Tab.Chew) 500 mg PO Q4H PRN PRN Reason: HEARTBURN Last Admin: 08/31/20 14:44 Dose: 500 mg Documented by: Citalopram Hydrobromide (Citalopram 20 Mg Tab) 40 mg PO DAILY [facility] Last Admin: 09/02/20 08:00 Dose: 40 mg Documented by: Al Hydroxide/Mg Hydroxide 30 ml/ Lidocaine HCl 30 ml/Diphenhydramine HCl 75 mg 0 ml PO Q2H PRN PRN Reason: MOUTH PAIN Last Admin: 08/29/20 15:38 Dose: 15 ml Documented by: Dexamethasone (Dexamethasone 4 Mg Tab) 4 mg PO DAILY [facility] Last Admin: 09/02/20 08:00 Dose: 4 mg Documented by: Doxycycline Hyclate (Doxycycline 100 Mg Tab) 100 mg PO BID [facility] Last Admin: 09/02/20 08:01 Dose: 100 mg Documented by: Heparin Sodium (Porcine) (Heparin Sodium 100 Units/Ml 5 Ml Syringe) 500 units FLUSH ASDIRECTED PRN PRN Reason: Portacath flush Last Admin: 08/25/20 12:47 Dose: 500 units Documented by: Loperamide HCl (Loperamide 2 Mg Cap) 2 mg PO ASDIRECTED PRN PRN Reason: DIARRHEA Last Admin: 09/02/20 04:28 Dose: 2 mg Documented by: Magnesium Oxide (Magnesium Oxide 400 Mg Tab) 400 mg PO WITHDINNER [facility] Last Admin: 09/01/20 17:33 Dose: 400 mg Documented by: Melatonin (Melatonin 3 Mg Tab) 6 mg PO BEDTIME [facility] Last Admin: 09/01/20 20:56 Dose: 6 mg Documented by: Metoclopramide HCl (Metoclopramide 5 Mg Tab) 5 mg PO Q6H PRN PRN Reason: Nausea/Vomiting Mirtazapine (Mirtazapine 15 Mg Tab) 15 mg PO BEDTIME [facility] Last Admin: 09/01/20 20:56 Dose: 15 mg Documented by: Morphine Sulfate (Morphine 15 Mg Tab) 15 mg PO Q4H PRN PRN Reason: severe Pain Last Admin: 08/31/20 22:26 Dose: 15 mg Documented by: Pantoprazole Sodium (Pantoprazole 40 Mg Tab.Cr) 40 mg PO ACBREAKFAST [facility] Last Admin: 09/02/20 06:31 Dose: 40 mg Documented by: Simvastatin (Simvastatin 10 Mg Tab) 10 mg PO BEDTIME [facility] Last Admin: 09/01/20 20:58 Dose: 10 mg Documented by: Sodium Chloride (Sodium Chloride 0.9% 10 Ml Syringe) 10 ml FLUSH ASDIRECTED PRN PRN Reason: IV Use Last Admin: 09/01/20 05:43 Dose: 10 ml Documented by: Triamcinolone Acetonide (Triamcinolone Acetonide 0.1% Crm 15 Gm Tube) 0 gm TOP BID [facility] Stop: 09/07/20 09:01 Last Admin: 09/02/20 08:00 Dose: 1 dose Documented by: Discontinued Medications Acetaminophen (Acetaminophen 650 Mg Tab.Er) 650 mg PO Q4H PRN PRN Reason: Pain Acetaminophen/Diphenhydramine HCl (Acetaminophen/Diphenhydramine 500-25 Mg Tab) 1 tab PO BEDTIME [facility] Last Admin: 08/26/20 20:25 Dose: 1 tab Documented by: Amitriptyline HCl (Amitriptyline 25 Mg Tab) 75 mg PO BEDTIME [facility] Last Admin: 08/29/20 20:28 Dose: 75 mg Documented by: Amitriptyline HCl (Amitriptyline 25 Mg Tab) 50 mg PO BEDTIME [facility] Last Admin: 08/31/20 21:13 Dose: 50 mg Documented by: Azithromycin (Azithromycin 250 Mg Tab) 250 mg PO DAILY [facility] Stop: 09/02/20 09:01 Calcium Carbonate/Glycine (Calcium Carbonate 500 Mg Tablet) 1,500 mg PO BIDMEALS [facility] Last Admin: 08/28/20 08:55 Dose: Not Given Documented by: Al Hydroxide/Mg Hydroxide 30 ml/ Lidocaine HCl 30 ml/Diphenhydramine HCl 75 mg 0 ml PO Q4H PRN PRN Reason: MOUTH PAIN Last Admin: 08/28/20 15:40 Dose: 15 ml Documented by: Dexamethasone (Dexamethasone 4 Mg Tab) 4 mg PO DAILY [facility] Last Admin: 08/30/20 08:13 Dose: 4 mg Documented by: Dexamethasone (Dexamethasone 4 Mg/Ml Sdv) 10 mg IVPUSH ONETIME ONE Stop: 08/30/20 08:33 Last Admin: 08/30/20 09:19 Dose: Not Given Documented by: Dexamethasone (Dexamethasone 4 Mg/Ml Sdv) 6 mg IVPUSH ONETIME ONE Stop: 08/30/20 09:16 Last Admin: 08/30/20 10:02 Dose: 6 mg Documented by: Diatrizoate Meglum/Diatrizoate Sod (Diatrizoate Meglumine/Diatrizoate Sodium 37% 30 Ml Bottle) 30 ml PO ASDIRECTED ONE Stop: 08/25/20 16:24 Last Admin: 08/25/20 18:26 Dose: 30 ml Documented by: Hydromorphone HCl (Hydromorphone 2 Mg/Ml Sdv) 2 mg IVPUSH ONETIME ONE Stop: 08/30/20 08:34 Last Admin: 08/30/20 08:53 Dose: 2 mg Documented by: Magnesium Sulfate 4 gm/ Premix 50 mls @ 12.5 mls/hr IV ONETIME ONE Stop: 08/24/20 15:09 Last Admin: 08/24/20 11:29 Dose: 12.5 mls/hr Documented by: Sodium Chloride (Normal Saline) 1,000 mls @ 100 mls/hr IV ASDIRECTED DENEEN Stop: 08/26/20 00:44 Last Admin: 08/25/20 01:11 Dose: 100 mls/hr Documented by: Doxycycline Hyclate 100 mg/ (Sodium Chloride) 100 mls @ 100 mls/hr IV Q12H [facility] Stop: 09/01/20 12:00 Last Admin: 09/01/20 10:04 Dose: 100 mls/hr Documented by: Iopamidol (Iopamidol 755 Mg/Ml 100 Ml Bottle) 100 ml IV . DIRECTED ONE Stop: 08/25/20 16:24 Last Admin: 08/25/20 18:26 Dose: 95 ml Documented by: Iopamidol (Iopamidol 755 Mg/Ml 75 Ml Bottle) 75 ml IV ASDIRECTED ONE Stop: 08/30/20 08:52 Last Admin: 08/30/20 09:30 Dose: 75 ml Documented by: Loperamide HCl (Loperamide 2 Mg Cap) 4 mg PO ONETIME ONE Stop: 08/24/20 20:28 Last Admin: 08/24/20 20:57 Dose: 4 mg Documented by: Loperamide HCl (Loperamide 2 Mg Cap) 2 mg PO ASDIRECTED PRN PRN Reason: Diarrhea Last Admin: 08/26/20 01:49 Dose: 2 mg Documented by: Magnesium Oxide (Magnesium Oxide 400 Mg Tab) 400 mg PO BID [facility] Last Admin: 08/28/20 20:58 Dose: 400 mg Documented by: Magnesium Oxide (Magnesium Oxide 400 Mg Tab) 400 mg PO BEDTIME [facility] Last Admin: 08/31/20 21:14 Dose: 400 mg Documented by: Melatonin (Melatonin 3 Mg Tab) 6 mg PO BEDTIME PRN PRN Reason: Insomnia Last Admin: 08/26/20 01:54 Dose: 6 mg Documented by: Meropenem (Meropenem 1 Gm Sdv) 1 gm IVPUSH Q8H [facility] Last Admin: 08/30/20 12:59 Dose: 1 gm Documented by: Meropenem (Meropenem 1 Gm Sdv) 1 gm IVPUSH Q8H [facility] Last Admin: 09/01/20 05:37 Dose: 1 gm Documented by: Naloxone HCl (Naloxone 0.4 Mg/Ml Sdv) 0.1 mg IVPUSH ONETIME PRN PRN Reason: Oversedation Naloxone HCl (Naloxone 0.4 Mg/Ml Sdv) 0.4 mg IVPUSH ONETIME PRN PRN Reason: Oversedation Last Admin: 08/30/20 17:50 Dose: 0.4 mg Documented by: Potassium Chloride (Potassium Chloride 20 Meq Tab.Er) 40 meq PO ONETIME ONE Stop: 08/24/20 11:12 Last Admin: 08/24/20 11:29 Dose: 40 meq Documented by: Potassium Chloride (Potassium Chloride 20 Meq Tab.Er) 20 meq PO DAILY [facility] Last Admin: 08/28/20 08:50 Dose: 20 meq Documented by: Sodium Chloride (Sodium Chloride 0.9% 10 Ml Syringe) 10 ml FLUSH ASDIRECTED PRN PRN Reason: Keep Vein Open Last Admin: 08/26/20 08:42 Dose: 10 ml Documented by: - Exam General: Reports: Alert, Oriented, Cooperative, No Acute Distress HEENT: Reports: Other (Left parotitis swelling improved, no overlying erythema) Neck: Reports: Trachea Midline, Lymphadenopathy (left) Lungs: Reports: Clear to Auscultation, Normal Respiratory Effort Cardiovascular: Reports: Regular Rate, Regular Rhythm GI/Abdominal Exam: Normal Bowel Sounds, Soft, Non-Tender, No Distention *Q Meaningful Use (DIS) - VTE *Q VTE Mechanical Contraindications *Q: At Risk for Falls VTE Pharmacological Contraindications *Q: Patient has Severe Anemia
== END 2020-09-02 13:13 | disposition hospice, home (50) | DRG 861 ==
LOC: FB.ED 10:03 → FB.MS 11:31
PROVIDERS: ADMIT Family Medicine; ATTEND Family Medicine
DX: R53.1 Weakness (principal); E83.42 Hypomagnesemia; E87.6 Hypokalemia; K11.21 Acute sialoadenitis; C24.0 Malignant neoplasm of extrahepatic bile duct; C79.51 Secondary malignant neoplasm of bone; Z51.5 Encounter for palliative care; R33.9 Retention of urine, unspecified; D69.6 Thrombocytopenia, unspecified; R18.0 Malignant ascites; D64.9 Anemia, unspecified; G31.84 Mild cognitive impairment of uncertain or unknown etiology; E44.0 Moderate protein-calorie malnutrition; J90 Pleural effusion, not elsewhere classified; W18.30XA Fall on same level, unspecified, initial encounter; Y92.009 Unspecified place in unspecified non-institutional (private) residence as the place of occurrence of the external cause; E78.5 Hyperlipidemia, unspecified; F32.9 Major depressive disorder, single episode, unspecified; Z98.890 Other specified postprocedural states; Z66 Do not resuscitate; R29.818 Other symptoms and signs involving the nervous system; R22.9 Localized swelling, mass and lump, unspecified; R29.2 Abnormal reflex; G63 Polyneuropathy in diseases classified elsewhere; M84.58XA Pathological fracture in neoplastic disease, other specified site, initial encounter for fracture
CPT/HCPCS: 36415; 51701; 70450; 70491; 71260; 74177; 80048; 80053; 81001; 82040; 82270; 83735; 85025; 92610-GN; 96374; 97110-GO; 97116-GP; 97161-GP; 97165-GO; 97530-GO; 97530-GP; 97542-GO; 99285-25; A9270-GY; J1100; J1170; J1642; J2185; J2310; J3475; J3490; J7030; J8540; Q9963; Q9967